=== PATIENT | male | born 1985 | race Caucasian/White ===

== ENCOUNTER 2021-10-09 19:16 | Inpatient (IN) | payer MEDICAID, SELFPAY ==
[2021-10-09] VITALS (20 sets, daily range): BP systolic 113–151; BP diastolic 70–111; PULSE 77–100; RESP 12–28; TEMP 36.7; O2SAT 96–99
--- NOTE | ~2021-10-09 | CT_ITS ---
EXAMINATION: CT brain wo con DATE: 10/09/2021 21:08 INDICATION: AMS . TECHNIQUE: Computed tomography (CT) of the head was performed without intravenous contrast. The mA wa s adjusted according to patient size. Iterative reconstruction technique was employed. The dose-lengt h product was 605.33 mGy-cm. COMPARISON: None FINDINGS: No acute intracranial hemorrhage or extra-axial fluid collection. No hydrocephalus, mass, or herniation. No acute ischemic infarct. Unremarkable dural venous sinus attenuation. No acute osseous abnormality. The aerated spaces are clear. IMPRESSION: No acute intracranial process. Reviewed, dictated and finalized at location K.
--- NOTE | 2021-10-09 19:54 | ECG_ITS ---
Measurements Intervals [place] Rate: 112 P: 10 ID: 177 QRS: 71 QRSD: 89 T: 52 QT: 328 QTc: 450 Interpretive Statements SINUS TACHYCARDIA LEFT VENTRICULAR HYPERTROPHY AND ST-T CHANGE Electronically Signed On 10-10-2021 10:51:29 CDT by Tan Colin M.D.
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
[2021-10-09 20:05] LABS: Basophils Absolute Auto 0.1 K/mm3 (0.0-0.1); Basophils Percent Auto 2.6 % (0.2-1.2); Eosinophils Absolute Auto 0.1 K/mm3 (0-0.3); Eosinophils Percent Auto 2.2 % (0-4.4); Hematocrit 46.4 % (42.0-52.0); Hemoglobin 15.6 g/dL (14.0-18.0); Immature Granulocyte Absolute 0.03 K/mm3 (0.00-0.031); Immature Granulocyte Percent A 0.6 % (0-0.5); Lymphocytes Absolute Auto 2.03 K/mm3 (0.9-3.2); Lymphocytes Percent Auto 40.8 % (18.3-44.2); Mean Corpuscular HGB Conc 33.6 g/dl (32-36); Mean Corpuscular Hemoglobin 32.3 pg (26-34); Mean Corpuscular Volume 96.1 fl (80-100); Mean Platelet Volume 8.8 fl (7.4-10.4); Monocytes Absolute Auto 0.6 K/mm3 (0.1-0.6); Neutrophils Absolute Auto 2.1 K/mm3 (1.3-6.7); Neutrophils Percent Auto 41.8 % (45.5-73.1); Platelet Count Result 144 k/mm3 (150-375); Red Blood Count 4.83 M/mm3 (4.6-6.20); Red Cell Distribution Width 16.1 % (11.5-14.5)
[2021-10-09 20:11] LABS: Fractional Inspired Oxygen 21 %; HCO3 ABG 26.5 mEq/l (22.0-26.0); Oxygen Content ABG 21.3 %vol (16.0-22.0); Oxygen Saturation ABG 98.6 % (95.0-100.0); Oxyhemoglobin 92.3 % THb (90.0-100.0); PCO2 ABG 37.3 mmHg (35.0-45.0); PO2 ABG 123.4 mmHg (80.0-100.0); PO2 FiO2 Ratio Arterial Blood 5.88 %; Total Hemoglobin 16.3 g/dL (12.0-18.0)
[2021-10-09 20:13] LABS: Device ROOM AIR; Modified Allen's Test Unable to perform; Site Drawn RIGHT RADIAL
[2021-10-09 20:22] LABS: Alanine Aminotransferase 35 U/L (6-50); Albumin Level 5.1 g/dL (3.5-5.1); Alkaline Phosphatase 100 U/L (38-126); Anion Gap 12 mmol/L (8-16); Aspartate Amino Transferase 68 U/L (17-59); Bilirubin,Total 0.3 mg/dL (0.2-1.3); Blood Urea Nitrogen 11 mg/dL (9-20); Calcium 8.5 mg/dL (8.4-10.2); Carbon Dioxide 28 mmol/L (22-30); Chloride 106 mmol/L (98-107); Estimated Glomerular Filt Rate > 60; Glucose 95 mg/dL (65-110); Potassium 4.2 mmol/L (3.4-5.0); Sodium 146 mmol/L (137-145)
[2021-10-09 20:43] LABS: Lactic Acid Reflex 1.9 mmol/L (0.7-2.0)
[2021-10-09 21:04] LABS: Acetaminophen < 10 ug/mL (10-30); Ammonia < 9 umol/L (9-30); Salicylate < 1.0 mg/dL (2-20)
[2021-10-09 21:06] LABS: Ethanol 515 mg/dL (<10)
[2021-10-09 21:09] LABS: Appearance Urine Clear (Clear); Bilirubin Urine Negative (Negative); Blood Urine Negative (Negative); Color Urine Yellow (Yellow); Glucose Urine UA Negative (Negative); Ketones Urine Negative (Negative); Leukocyte Esterase Ur Negative LEU/UL (Negative); Nitrate Urine Negative (Negative); Protein Urine 2+ mg/dL (Negative); Specific Grav Ur 1.025 (1.001-1.035)
[2021-10-09] MEDS: levETIRAcetam 1000MG/NACL100ML 1,000 MG/100 ML BAG 400 MG IVPB (21:12)
[2021-10-09 21:18] LABS: Bacteria Urine Trace /hpf; Mucus Urine Rare /lpf; RBC Urine 0-2 /hpf (0-2); WBC Urine 0-3 /hpf
[2021-10-09 21:18] LABS: Creatine Kinase 313 U/L (55-170)
[2021-10-09 21:19] LABS: Add Urine Microscopic? YES
[2021-10-09 21:23] LABS: Amphetamine Screen Urine Negative (Negative); Barbiturate Screen Urine Negative (Negative); Benzodiazepines Screen Urine Negative (Negative); Cannabinoid Screen Urine Negative (Negative); Cocaine Screen Urine Negative (Negative); Methadone Screen Urine Negative (Negative); Opiate Screen Urine Negative (Negative); Phencyclidine Screen Urine Negative (Negative)
[2021-10-09] MEDS: SODIUM CHLORIDE 0.9% IV 1,000 ML 999 ML IV CONT (21:40)
[2021-10-09] MEDS: THIAMINE HCL 200 MG/2 ML VIAL 100 MG IV PUSH (23:14)
[2021-10-10] VITALS (13 sets, daily range): BP systolic 115–156; BP diastolic 78–95; PULSE 52–117; RESP 15–20; TEMP 36.3–37.1; O2SAT 96–98; BMI 22.4
--- NOTE | 2021-10-10 00:02 | PC.NURSE ---
Elsa, mother of pt, phone number is [phone]
--- NOTE | 2021-10-10 02:03 | ADMGEN ---
This patient, Darian Sue, was admitted to [facility] Surg Room 316-01. Patient/family oriented to hospital policies and general routines including ID bracelet, bed and alarms, visiting hours, pain management, procedures, bathroom and other care routines, personal items, smoking policy, room service/diet, and visiting hours. Information on how to activate the Rapid Response Team has been discussed. Patient/Family are encouraged to report perceived risks to care and to ask questions if they do not understand what they are told or what they should do.
--- NOTE | 2021-10-10 09:43 | PM.IMHP ---
H&P: HPI History of Present Illness Date/Time: 10/10/21 09:43 Chief Complaint: Alcohol intoxication Narrative: 35-year-old male with past medical history significant for alcohol abuse presenting with alcohol intoxication. Mom is at bedside and helps give history. Apparently the patient came home so drunk mom did not want to let him back in the house. Patient denies chest pain or shortness of breath, no nausea vomiting or diarrhea. No fevers or chills. No recent travel or sick contacts. Patient admits to long history of alcohol abuse. He states he went to rehab in [place] last year. He then came back and moved in with his mom. He stops drinking from November until March of 2021. Since then, Mom states he has been drinking daily and spends most of his time blackout drunk. She has decided he could no longer live with her as she was hoping he could stay simply to get back on his feet after rehab. Patient states he does not want to go back to rehab. He is very upset that he cannot live with his mother. He states he is not sure if he wants to quit drinking. He just wants to go home and go back to bed. Patient states he feels very jittery and anxious. He admits to having alcohol withdrawal seizures in the past if he does not wake up early enough to start drinking again. Review of Systems Review of Systems: General: HEENT: Atraumatic, normocephalic, mucous membranes moist CV: Regular rate and rhythm, S1, S2, no murmurs rubs or gallops noted Lungs: Clear to auscultation bilaterally, no rales or crackles noted, no wheezes, good air entry Abdomen: Soft, nontender, nondistended Extremities: Normal to inspection, no edema noted Skin: No rashes noted, no lesions or wounds seen Psych: Euthymic, normal affect Neuro: Cranial nerves 2-12 grossly intact, strength 5/5 upper and lower extremities noted [facility] Social History Social History Smoking status: Never smoker Second hand tobacco smoke exposure: No Alcohol intake: current Drinks per week: 80 Substance use: former Substance use type: marijuana, crack/cocaine and hallucinogens Other substance usage details: experimented with cocaine and mushrooms, smoked weed daily for 5 years Last use: 2 months ago Spiritual care concerns: No Meds Home Medications and Allergies Home Medications Medication Instructions Recorded Confirmed Type fluoxetine 20 mg capsule (Prozac) 20 cap PO 1XD 10/10/21 10/10/21 History Allergies Allergy/AdvReac Type Severity Reaction Status Date / Time No Known Allergies Allergy Mild Verified 10/09/21 19:33 Vital Signs Vital Signs - 24 hr 10/09/21 19:30 10/09/21 19:40 10/09/21 20:55 Temperature 98.0 F Pulse Rate 100 84 93 Respiratory Rate 18 24 H 21 H Blood Pressure 151/111 H 137/84 Pulse Oximetry 97 97 98 Oxygen Delivery Room Air Room Air 10/09/21 21:00 10/09/21 21:01 10/09/21 21:15 Temperature Pulse Rate 86 90 84 Respiratory Rate 17 19 19 Blood Pressure 140/100 H Pulse Oximetry 97 98 96 Oxygen Delivery 10/09/21 21:30 10/09/21 21:34 10/09/21 21:45 Temperature Pulse Rate 85 79 83 Respiratory Rate 21 H 20 28 H Blood Pressure 134/96 H Pulse Oximetry 97 98 Oxygen Delivery 10/09/21 21:46 10/09/21 22:00 10/09/21 22:01 Temperature Pulse Rate 77 92 88 Respiratory Rate 19 13 20 Blood Pressure 113/79 132/93 H Pulse Oximetry Oxygen Delivery 10/09/21 22:16 10/09/21 22:31 10/09/21 22:51 Temperature Pulse Rate 83 Respiratory Rate 16 Blood Pressure 129/95 H 124/86 Pulse Oximetry 97 Oxygen Delivery 10/09/21 23:04 10/09/21 23:43 10/09/21 23:45 Temperature Pulse Rate 86 88 90 Respiratory Rate 12 18 17 Blood Pressure Pulse Oximetry 97 96 97 Oxygen Delivery 10/09/21 23:46 10/09/21 23:47 10/10/21 00:00 Temperature Pulse Rate 90 85 95 Respiratory Rate 17 16 19 Blood Pressur
[2021-10-11 05:43] VITALS: BP 141/97; PULSE 50; RESP 16; TEMP 36.9; O2SAT 99
[2021-10-11 10:13] LABS: Basophils Absolute Auto 0.1 K/mm3 (0.0-0.1); Basophils Percent Auto 1.2 % (0.2-1.2); Eosinophils Absolute Auto 0.1 K/mm3 (0-0.3); Eosinophils Percent Auto 1.7 % (0-4.4); Hematocrit 46.3 % (42.0-52.0); Hemoglobin 16.3 g/dL (14.0-18.0); Immature Granulocyte Absolute 0.03 K/mm3 (0.00-0.031); Immature Granulocyte Percent A 0.5 % (0-0.5); Immature Platelet Fraction Pct 3.9 % (0.9-11.2); Lymphocytes Absolute Auto 1.04 K/mm3 (0.9-3.2); Lymphocytes Percent Auto 17.8 % (18.3-44.2); Mean Corpuscular HGB Conc 35.2 g/dl (32-36); Mean Corpuscular Hemoglobin 33.5 pg (26-34); Mean Corpuscular Volume 95.1 fl (80-100); Mean Platelet Volume 9.6 fl (7.4-10.4); Monocytes Absolute Auto 0.5 K/mm3 (0.1-0.6); Monocytes Percent Auto 8.2 % (2.6-8.5); Neutrophils Absolute Auto 4.1 K/mm3 (1.3-6.7); Neutrophils Percent Auto 70.6 % (45.5-73.1); Platelet Count Result 140 k/mm3 (150-375); Red Blood Count 4.87 M/mm3 (4.6-6.20); Red Cell Distribution Width 15.5 % (11.5-14.5); White Blood Count 5.9 K/mm3 (4.5-10.0)
[2021-10-11 10:23] LABS: Alanine Aminotransferase 37 U/L (6-50); Alkaline Phosphatase 74 U/L (38-126); Anion Gap 8 mmol/L (8-16); Aspartate Amino Transferase 62 U/L (17-59); Bilirubin,Total 1.1 mg/dL (0.2-1.3); Blood Urea Nitrogen 10 mg/dL (9-20); Carbon Dioxide 29 mmol/L (22-30); Chloride 100 mmol/L (98-107); Estimated CRCL calculation 159 ml/min; Estimated Glomerular Filt Rate > 60; Glucose 128 mg/dL (65-110); Magnesium 1.9 mg/dL (1.6-2.3); Potassium 3.8 mmol/L (3.4-5.0); Sodium 137 mmol/L (137-145)
[2021-10-11 10:32] LABS: INR 0.9; Prothrombin Time 12.2 Seconds (11.1-14.7)
[2021-10-11] MEDS: FLUoxetine HCL 20 MG CAPSULE PO (10:46)
[2021-10-11] MEDS: THIAMINE HCL INJ 100 MG, FOLIC ACID INJ 1 MG, MULTIVITAMINS-12 INJ VIAL 1 5 ML, MULTIVI... 125 MG IV CONT (10:46)
--- NOTE | 2021-10-11 12:30 | PM.IMPN ---
Progress Note: A&P Assessment and Plan (1) Alcohol abuse: Code(s): F10.10 - Alcohol abuse, uncomplicated Status: Acute Assessment and Plan: Request care coordination give patient a list of rehab facilities in homeless shelters for discharge planning Patient has contact with [facility] for rehab (2) Alcohol withdrawal: Code(s): F10.239 - Alcohol dependence with withdrawal, unspecified Status: Acute Assessment and Plan: Monitor symptoms closely with regular CIWA scales, Librium ordered around the clock, wean as able PRN and LENNOX librium CIWA 12 at time of exam Time Spent With Patient Time with patient: Greater than 35 minutes Subjective Date/time seen: 10/11/21 12:30 Interval history: 10/11/21 1230 patient was lying in bed he seemed to state that he was okay. He did look to have a lot of tremors. He really does want to go home however he just seems unstable. CIWA score was 12 points. He denies any chest pain, shortness of breath, nausea, vomiting diarrhea, constipation, weakness or fatigue. did talk to the patient about psycho therapy and the need to realize that he has addiction. His mother was also present in the room. Talked to the patient about next steps to rehab. Patient is agreeable to rehab has already made contact [facility]. 10/10/21? 09:43 35-year-old male with past medical history significant for alcohol abuse presenting with alcohol intoxication.? Mom is at bedside and helps give history.? Apparently the patient came home so drunk mom did not want to let him back in the house.? Patient denies chest pain or shortness of breath, no nausea vomiting or diarrhea.? No fevers or chills.? No recent travel or sick contacts.? Patient admits to long history of alcohol abuse.? He states he went to rehab in [place] last year.? He then came back and moved in with his mom.? He stops drinking from November until March of 2021.? Since then, Mom states he has been drinking daily and spends most of his time blackout drunk.? She has decided he could no longer live with her as she was hoping he could stay simply to get back on his feet after rehab. Patient states he does not want to go back to rehab.? He is very upset that he cannot live with his mother.? He states he is not sure if he wants to quit drinking.? He just wants to go home and go back to bed. Patient states he feels very jittery and anxious.? He admits to having alcohol withdrawal seizures in the past if he does not wake up early enough to start drinking again. Review of Systems Review of Systems: All systems reviewed & are unremarkable except as noted in HPI and below Exam Const: General: cooperative, healthy appearing, well developed, alert, awake, anxious and ill appearing Nutritional Appearance: well nourished Orientation/consciousness: oriented to person, oriented to place, oriented to time and patient oriented x3 Limitations: no limitations HENMT: Head: normal to inspection Ears: hearing grossly normal bilaterally General nose exam: Normal external nose present Mouth: Yes Normal oral and palatal mucosa present, Yes lip normal and Yes tongue normal Teeth and gingiva: abnormal tooth and associated gingiva and poor dentition Eyes: General: appearance normal, both eyes and all related structures Neck: Neck: normal visual inspection, full ROM, trachea midline and supple Chest: Chest palpation & inspection: normal inspection of the chest Resp: Effort & Inspection: normal respiratory effort and able to speak in complete sentences Auscultation: clear to auscultation bilaterally Cardio: Jugular venous distension: no JVD Rate: regular rate Rhythm: regular rhythm Heart sounds: S1 normal heart sound present and S2 normal heart sound present Peripheral pulses: Peripheral pulses 2+ throughout GI: Inspection: normal to inspection GI Palp: Yes Soft to palpation and No Tenderness to palpation present (GI)
--- NOTE | 2021-10-11 12:46 | PCDIET ---
Nutrition consult received for alcohol abuse. Pt is on a regular diet, intake 100% all meals. MVI with thiamin, folic acid in place as would be recommended. BMI:22.4 - WNL.
[2021-10-11 14:00] VITALS: BP 152/94; PULSE 65; RESP 16; TEMP 36.8; O2SAT 98
[2021-10-11] MEDS: chlordiazePOXIDE (*CRX) 25 MG CAPSULE PO (15:45)
[2021-10-11 18:45] LABS: Glucose Point of Care 138 mg/dl (65-105)
[2021-10-11] MEDS: chlordiazePOXIDE (*CRX) 10 MG CAPSULE PO (21:25)
[2021-10-11 22:00] VITALS: BP 150/97; PULSE 76; RESP 18; TEMP 36.7; O2SAT 98
[2021-10-12 05:35] VITALS: BP 137/91; PULSE 69; RESP 18; TEMP 37; O2SAT 100
[2021-10-12] MEDS: chlordiazePOXIDE (*CRX) 10 MG CAPSULE PO (06:06)
[2021-10-12 06:42] LABS: Basophils Absolute Auto 0.1 K/mm3 (0.0-0.1); Eosinophils Absolute Auto 0.1 K/mm3 (0-0.3); Eosinophils Percent Auto 1.9 % (0-4.4); Hematocrit 44.9 % (42.0-52.0); Hemoglobin 14.9 g/dL (14.0-18.0); Immature Granulocyte Absolute 0.03 K/mm3 (0.00-0.031); Immature Granulocyte Percent A 0.5 % (0-0.5); Lymphocytes Absolute Auto 1.38 K/mm3 (0.9-3.2); Lymphocytes Percent Auto 23.8 % (18.3-44.2); Mean Corpuscular HGB Conc 33.2 g/dl (32-36); Mean Corpuscular Hemoglobin 32.8 pg (26-34); Mean Corpuscular Volume 98.9 fl (80-100); Mean Platelet Volume 9.5 fl (7.4-10.4); Monocytes Absolute Auto 0.5 K/mm3 (0.1-0.6); Monocytes Percent Auto 7.9 % (2.6-8.5); Neutrophils Absolute Auto 3.8 K/mm3 (1.3-6.7); Neutrophils Percent Auto 64.9 % (45.5-73.1); Platelet Count Result 128 k/mm3 (150-375); Red Blood Count 4.54 M/mm3 (4.6-6.20); Red Cell Distribution Width 15.4 % (11.5-14.5); White Blood Count 5.8 K/mm3 (4.5-10.0)
[2021-10-12 06:56] LABS: Alanine Aminotransferase 34 U/L (6-50); Albumin Level 4.5 g/dL (3.5-5.1); Alkaline Phosphatase 69 U/L (38-126); Anion Gap 5 mmol/L (8-16); Aspartate Amino Transferase 53 U/L (17-59); Bilirubin,Total 0.8 mg/dL (0.2-1.3); Blood Urea Nitrogen 9 mg/dL (9-20); Calcium 8.3 mg/dL (8.4-10.2); Carbon Dioxide 29 mmol/L (22-30); Chloride 101 mmol/L (98-107); Estimated CRCL calculation 159 ml/min; Estimated Glomerular Filt Rate > 60; Glucose 93 mg/dL (65-110); Potassium 4.2 mmol/L (3.4-5.0); Salicylate < 1.0 mg/dL (2-20); Sodium 135 mmol/L (137-145)
[2021-10-12 08:00] VITALS: PULSE 69; RESP 18; O2SAT 100
[2021-10-12] MEDS: THIAMINE HCL 100 MG TABLET PO (08:04)
[2021-10-12] MEDS: FLUoxetine HCL 20 MG CAPSULE PO (08:04)
[2021-10-12] MEDS: FOLIC ACID 1 MG TABLET PO (08:04)
[2021-10-12 08:19] LABS: Glucose Point of Care 115 mg/dl (65-105)
--- NOTE | 2021-10-12 09:22 | PC.NURSE ---
pt admitted 10/11/21 per computer, stating he is getting suppose to get discharged today and has rehab appointment at 1030am, called to inform provider Lito Marcelo NP, awaiting call back.
--- NOTE | 2021-10-12 09:35 | PM.DS ---
DS: Admitting Diagnosis Discharge Date 10/12/21929 Admitting Diagnosis Alcohol withdrawal DS: Discharge Diagnosis Discharge Diagnosis (1) Alcohol abuse: Code(s): F10.10 - Alcohol abuse, uncomplicated Status: Acute Assessment and Plan: Request care coordination give patient a list of rehab facilities in homeless shelters for discharge planning Patient has contact with [facility] for rehab (2) Alcohol withdrawal: Code(s): F10.239 - Alcohol dependence with withdrawal, unspecified Status: Acute Assessment and Plan: Monitor symptoms closely with regular CIWA scales, Librium ordered around the clock, wean as able PRN and LENNOX librium CIWA 12 at time of exam DS: Summary Hospital Course Hospital Course: Patient is a 35-year-old male with a past medical history for alcohol abuse presenting for alcohol intoxication. Patient was currently living with his mother however his mother stated that the patient has been continuously drunk over the last couple days to the point of him blacking out. It is also noted the patient has had seizures due to alcohol withdrawal due to not waking up enough time to get another drink. Today patient has an appointment with [facility] for rehab and follow-up. Upon arrival patient was initiated with a banana bag which were changed over to p.o. thiamine and folic acid. Patient was also on Librium for withdrawal symptoms. CIWA score did show to be a 12 yesterday. Today patient is up and ready to go as he has an appointment at 10:30 a.m. with [facility]. Education and counseling has been given to the patient about quitting and alcohol cessation. Education has also been given to the patient about taking Librium and alcohol together the side effects and what could do. Patient verbalized understanding. Patient's CIWA score today is the about 3-4. Patient seems to be very excited about going to his appointment today. Patient denies any chest pain, shortness of breath, nausea, vomiting, diarrhea, constipation, weakness or fatigue. Patient did have breakfast and was able to tolerate food without any nausea or vomiting. Patient still does have some tremors especially with his arms extended. Patient is stable for discharge for labs and vital signs. Status at Discharge Functional status at discharge: independent ambulation Overall status at discharge: patient is progressing back to baseline Time Spent with Patient Time attestation: Total time spent providing and/or coordinating discharge services: 42 minutes Time spent: Greater than 30 minutes Specific discharge activities: Diagnostic testing, chart review, developing a treatment plan, education, care coordination documentation, physical exam, result review Exam Const: General: cooperative, healthy appearing, well developed, alert and awake Nutritional Appearance: well nourished Orientation/consciousness: oriented to person, oriented to place, oriented to time and patient oriented x3 Limitations: no limitations HENMT: Head: normal to inspection Ears: hearing grossly normal bilaterally General nose exam: Normal external nose present Mouth: Yes Normal oral and palatal mucosa present, Yes lip normal and Yes tongue normal Teeth and gingiva: abnormal tooth and associated gingiva and poor dentition Eyes: General: appearance normal, both eyes and all related structures Neck: Neck: normal visual inspection, full ROM, trachea midline and supple Chest: Chest palpation & inspection: normal inspection of the chest Resp: Effort & Inspection: normal respiratory effort and able to speak in complete sentences Auscultation: clear to auscultation bilaterally Cardio: Jugular venous distension: no JVD Rate: regular rate Rhythm: regular rhythm Heart sounds: S1 normal heart sound present and S2 normal heart sound present Peripheral pulses: Peripheral pulses 2+ throughout GI: Inspection: normal to inspection Auscul
--- NOTE | 2021-10-12 09:49 | PC.NURSE ---
called Elsa, able to miner pick pt, on her way.
[2021-10-14 16:21] LABS: Levetiracetam Keppra 5.3
== END 2021-10-12 10:00 | disposition home or self-care (01) | DRG 775 ==
LOC: ANHED 23:06 → ANH3MEDSUR 23:50
PROVIDERS: Student in an Organized Health Care Education/Training Program; Admitting Provider Internal Medicine; Emergency Provider Emergency Medicine; Visit Provider Nurse Practitioner
DX: F10.229 Alcohol dependence with intoxication, unspecified (principal); F10.239 Alcohol dependence with withdrawal, unspecified
CPT/HCPCS: 36415; 36600; 70450; 80053; 80177; 80307; 81001; 82140; 82550; 82805; 82948; 83605; 83735; 84100; 84443; 85025; 85055; 85610; 93005; 96365; 96374; 96375; 99285; A9270; G0378; G0379; J1953; J3411; J3475; J7030

== ENCOUNTER 2023-03-06 17:38 | Emergency (ER) | payer BC, SELFPAY ==
[2023-03-06 17:48] VITALS: BP 147/94; PULSE 103; RESP 14; TEMP 36.6; O2SAT 98
--- NOTE | 2023-03-06 18:00 | PC.NURSE ---
BED ALARM GOING OFF. PT FOUND STANDING BESIDE HIS BED AND IV WAS PULLED OUT. BLOOD CLEANED OFF AND PT ASSISTED BACK INTO BED. HE WAS MADE AWARE HE IS NOT TO ATTEMPT TO GET OUT OF BED AGAIN. CHRISTI FOSTER MADE AWARE.
--- NOTE | 2023-03-06 18:14 | PC.NURSE ---
Sitter placed with patient for patient safety.
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
[2023-03-06 18:45] LABS: Basophils Absolute Auto 0.1 K/mm3 (0.0-0.1); Basophils Percent Auto 1.6 % (0.2-1.2); Eosinophils Absolute Auto 0.1 K/mm3 (0-0.3); Eosinophils Percent Auto 1.2 % (0-4.4); Hematocrit 47.5 % (42.0-52.0); Hemoglobin 16.1 g/dL (14.0-18.0); Immature Granulocyte Absolute 0.02 K/mm3 (0.00-0.031); Immature Granulocyte Percent A 0.4 % (0-0.5); Lymphocytes Absolute Auto 1.68 K/mm3 (0.9-3.2); Lymphocytes Percent Auto 34.1 % (18.3-44.2); Mean Corpuscular HGB Conc 33.9 g/dl (32-36); Mean Corpuscular Volume 97.3 fl (80-100); Monocytes Absolute Auto 0.3 K/mm3 (0.1-0.6); Monocytes Percent Auto 6.1 % (2.6-8.5); Neutrophils Absolute Auto 2.8 K/mm3 (1.3-6.7); Neutrophils Percent Auto 56.6 % (45.5-73.1); Platelet Count Result 192 k/mm3 (150-375); Red Blood Count 4.88 M/mm3 (4.6-6.20); Red Cell Distribution Width 14.3 % (11.5-14.5); White Blood Count 4.9 K/mm3 (4.5-10.0)
[2023-03-06 18:52] LABS: Alanine Aminotransferase 19 U/L (6-50); Albumin Level 4.6 g/dL (3.5-5.1); Alkaline Phosphatase 83 U/L (38-126); Anion Gap 13 mmol/L (8-16); Aspartate Amino Transferase 47 U/L (17-59); Bilirubin,Total 0.6 mg/dL (0.2-1.3); Blood Urea Nitrogen 8 mg/dL (9-20); Calcium 8.5 mg/dL (8.4-10.2); Carbon Dioxide 29 mmol/L (22-30); Chloride 105 mmol/L (98-107); Estimated CRCL calculation 157 ml/min; Estimated Glomerular Filt Rate > 60; Glucose 97 mg/dL (65-110); Potassium 4.2 mmol/L (3.4-5.0); Sodium 147 mmol/L (137-145)
[2023-03-06 18:55] LABS: INR 0.9; Prothrombin Time 12.3 Seconds (11.1-14.7)
[2023-03-06 18:56] LABS: Partial Thromboplastin Time 25.8 SECONDS (22.3-36.8)
[2023-03-06 19:04] LABS: Ethanol 478 mg/dL (<10)
--- NOTE | 2023-03-06 19:13 | PC.NURSE ---
Patient refusing to keep pulse ox or ECG leads on. Patient continues to pull everything off.
[2023-03-06] MEDS: LACTATED RINGERS 1,000 ML 999 ML IV CONT (19:24)
--- NOTE | 2023-03-06 19:51 | PC.NURSE ---
Patient refusing to lay down in the bed. security at bedside due to patient not cooperating.
[2023-03-06 20:57] VITALS: BP 154/94; PULSE 94; RESP 20; O2SAT 95
== END 2023-03-06 21:00 | disposition home or self-care (01) ==
PROVIDERS: Emergency Provider Physician Assistant
DX: F10.129 Alcohol abuse with intoxication, unspecified (principal); E86.0 Dehydration; Y90.8 Blood alcohol level of 240 mg/100 ml or more
CPT/HCPCS: 36415; 80053; 80307; 85025; 85610; 85730; 96360; 99283; J7120

== ENCOUNTER 2023-04-04 17:22 | Emergency (ER) | payer BC, SELFPAY ==
[2023-04-04 17:20] VITALS: BP 145/78; PULSE 109; RESP 16; TEMP 36.2; O2SAT 98
--- NOTE | 2023-04-04 17:32 | ECG_ITS ---
Measurements Intervals [place] Rate: 107 P: 55 GA: 170 QRS: 55 QRSD: 100 T: 76 QT: 331 QTc: 443 Interpretive Statements SINUS TACHYCARDIA LEFT VENTRICULAR HYPERTROPHY WITH SECONDARY REPOLARIZATION CHANGES ABNORMAL RHYTHM ECG COMPARED TO ECG 10/09/2021 19:58:43 NO SIGNIFICANT CHANGE Electronically Signed On 04-04-2023 18:13:32 DATA TRANSCRIBER by Cecilio Oviedo M.D.
--- NOTE | 2023-04-04 17:44 | ED.GENADULT ---
HPI - General Adult General Chief complaint: Alcohol <Bam Sepulveda PA-C - Last Filed: 04/05/23 03:17> Stated complaint: etoh <Bam Sepulveda PA-C - Last Filed: 04/05/23 03:17> Source: patient <Bam Sepulveda PA-C - Last Filed: 04/05/23 03:17> Mode of arrival: ambulatory <Bam Sepulveda PA-C - Last Filed: 04/05/23 03:17> Limitations: no limitations <Bam Sepulveda PA-C - Last Filed: 04/05/23 03:17> History of Present Illness HPI narrative: This is a 37-year-old male who presents to the ED via EMS for reported alcoholic intoxication. The neighbors called EMS after they found him slumped on his balcony with several open containers of vodka. Per EMS patient was not responding for them and has not given any further history. When I try to obtain history patient is not responding to me. <Bam Sepulveda PA-C - Last Filed: 04/05/23 03:17> Related Data Home medications: Home Medications Medication Instructions Recorded Confirmed fluoxetine 20 mg capsule (Prozac) 20 cap PO 1XD 10/10/21 10/10/21 <Bam Sepulveda PA-C - Last Filed: 04/05/23 03:17> Allergies/adverse reactions: Allergies Allergy/AdvReac Type Severity Reaction Status Date / Time No Known Allergies Allergy Mild Verified 03/06/23 17:53 <Bam Sepulveda PA-C - Last Filed: 04/05/23 03:17> Review of Systems Review of Systems: All systems as dictated in HPI <Bam Sepulveda PA-C - Last Filed: 04/05/23 03:17> [facility] Past Medical History Medical History: Medical History Alcohol abuse <Bam Sepulveda PA-C - Last Filed: 04/05/23 03:17> Social History Social History: Social History Smoking status: Never smoker Second hand tobacco smoke exposure: No Alcohol intake: current Drinks per week: 80 Substance use: former Substance use type: marijuana, crack/cocaine and hallucinogens Other substance usage details: experimented with cocaine and mushrooms, smoked weed daily for 5 years Last use: 2 months ago Spiritual care concerns: No <Bam Sepulveda PA-C - Last Filed: 04/05/23 03:17> Exam Narrative: GENERAL: Dishevelled, well nourished. No acute distress. He is not participating with exam. Smells of alcohol. HEAD: Normocephalic, atraumatic. EYES: PERRLA and EOMI. Tracking my movements. ENT: Nares clear, no rhinorrhea or epistaxis. Mucous membranes moist. Oropharynx without tonsillar hypertrophy exudate or other lesions. NECK: Supple. No adenopathy or masses. CHEST: No respiratory distress. Clear to auscultation. No wheezes rales or rhonchi HEART: Regular rate and rhythm. No murmur heard. Normal peripheral pulses. ABDOMEN: Soft, nontender, nondistended, normal active bowel sounds. MSK: Normal range of motion. No edema. SKIN: Warm, dry, no rash. NEURO: Not responding to questions, not participating with full exam. Makes eye contact when I shout his name. Does not follow commands. PSYCH: Normal mood and affect. <Bam Sepulveda PA-C - Last Filed: 04/05/23 03:17> Course Course Emergency Course: Evaluation time 1:33 a.m.: Patient remains stable. He is now participating fully with exam and conversational. He appears to be clinically sobering up however his ethanol level is still markedly elevated at 334. CK a repeat has come down to 6093 from over 7000. <Bam Sepulveda PA-C - Last Filed: 04/05/23 03:17> MANAGER WEALTH MANAGEMENT/PA Physician Supervision For this patient encounter, I reviewed the MANAGER WEALTH MANAGEMENT or PA documentation, treatment plan, and medical decision making; and I had [id number] time with this patient. <Konrad Cruz MD - Last Filed: 04/05/23 03:18> Vital Signs Vital signs: Vital Signs Temperature 97.2 F L 04/04/23 17:20 Pulse Rate 109 H 04/04/23 17:20 Respiratory Rate 16 04/04/23 17:20 Blood Pressure 145/78 H 04/04/23 17:20 Pulse Oximetry 98 04/04/23 17:20 Temperature 97.2 F L 03/16
[2023-04-04] MEDS: SODIUM CHLORIDE 0.9% IV 1,000 ML 999 ML IV CONT ×3 (18:02→23:44)
[2023-04-04 18:13] LABS: Basophils Absolute Auto 0.1 K/mm3 (0.0-0.1); Basophils Percent Auto 0.9 % (0.2-1.2); Eosinophils Percent Auto 0.1 % (0-4.4); Hematocrit 47.4 % (42.0-52.0); Immature Granulocyte Absolute 0.03 K/mm3 (0.00-0.031); Immature Granulocyte Percent A 0.3 % (0-0.5); Lymphocytes Absolute Auto 2.24 K/mm3 (0.9-3.2); Lymphocytes Percent Auto 19.6 % (18.3-44.2); Mean Corpuscular HGB Conc 33.8 g/dl (32-36); Mean Corpuscular Hemoglobin 32.2 pg (26-34); Mean Corpuscular Volume 95.4 fl (80-100); Mean Platelet Volume 8.6 fl (7.4-10.4); Monocytes Absolute Auto 0.9 K/mm3 (0.1-0.6); Monocytes Percent Auto 7.9 % (2.6-8.5); Neutrophils Absolute Auto 8.1 K/mm3 (1.3-6.7); Neutrophils Percent Auto 71.2 % (45.5-73.1); Platelet Count Result 347 k/mm3 (150-375); Red Blood Count 4.97 M/mm3 (4.6-6.20); Red Cell Distribution Width 13.8 % (11.5-14.5); White Blood Count 11.4 K/mm3 (4.5-10.0)
[2023-04-04 18:25] LABS: Alanine Aminotransferase 46 U/L (6-50); Albumin Level 4.6 g/dL (3.5-5.1); Alkaline Phosphatase 106 U/L (38-126); Anion Gap 13 mmol/L (8-16); Aspartate Amino Transferase 227 U/L (17-59); Bilirubin,Total 0.4 mg/dL (0.2-1.3); Blood Urea Nitrogen 10 mg/dL (9-20); Calcium 8.4 mg/dL (8.4-10.2); Carbon Dioxide 29 mmol/L (22-30); Chloride 102 mmol/L (98-107); Estimated CRCL calculation 148 ml/min; Estimated Glomerular Filt Rate > 60; Glucose 113 mg/dL (65-110); Potassium 4.2 mmol/L (3.4-5.0); Sodium 144 mmol/L (137-145)
[2023-04-04 18:31] VITALS: BP 141/80; PULSE 115; RESP 18; O2SAT 98; O2SAT 99
[2023-04-04 18:59] LABS: Amphetamine Screen Urine Negative (Negative); Barbiturate Screen Urine Negative (Negative); Benzodiazepines Screen Urine Negative (Negative); Cannabinoid Screen Urine Negative (Negative); Cocaine Screen Urine Negative (Negative); Methadone Screen Urine Negative (Negative); Opiate Screen Urine Negative (Negative); Phencyclidine Screen Urine Negative (Negative)
[2023-04-04 19:01] VITALS: BP 117/73; RESP 18; O2SAT 99
[2023-04-04 19:07] LABS: Creatine Kinase 7183 U/L (55-170)
[2023-04-04 19:17] LABS: Ethanol 512 mg/dL (<10)
[2023-04-04 19:25] LABS: Appearance Urine Clear (Clear); Bacteria Urine None Seen /hpf; Bilirubin Urine Negative (Negative); Blood Urine 1+ (Negative); Color Urine Yellow (Yellow); Glucose Urine UA Negative (Negative); Ketones Urine Negative (Negative); Leukocyte Esterase Ur Negative LEU/UL (Negative); Need Manual Microscopic Reviewed; Nitrate Urine Negative (Negative); Non Pathogenic Casts 0-2; Protein Urine Negative (Negative); RBC Urine 0-2 /hpf (0-2); Specific Grav Ur 1.004 (1.001-1.035); Squamous Epithelial Cell Urine None seen /hpf (Few); Urobilinogen Urine 0.2 mg/dL (<2.0); WBC Urine 0-5 /hpf; pH Urine 5.5 (5.0-9.0)
[2023-04-04 19:26] LABS: Add Urine Microscopic? YES
[2023-04-04 19:30] LABS: Phosphorus 2.4 mg/dL (2.5-4.5)
[2023-04-04 19:43] LABS: Partial Thromboplastin Time 25.5 SECONDS (22.3-36.8)
--- NOTE | 2023-04-04 20:12 | PC.NURSE ---
Patient pulled out his IV. When asked why the patient stated It was getting cold .
--- NOTE | 2023-04-04 20:20 | PC.NURSE ---
Nursing staff entered the room to start another IV and continue fluids. Patient asked why he was getting another IV and nursing staff told him because his fluids were not finished and there was another medication that needed to be given. Patient stated he would like to deny an IV. EDP Bam Garibay notified.
[2023-04-04 21:30] LABS: Fractional Inspired Oxygen 21 %; HCO3 VBG 25.9 mEq/l (24.0-30.0); PCO2 VBG 36.6 mmHg (42.0-48.0); PO2 VBG 74.8 mmHg (35.0-45.0)
[2023-04-04 21:32] LABS: pH VBG 7.467 (7.300-7.400)
[2023-04-04] MEDS: THIAMINE 500 MG/NS 100 ML 500 MG/100 ML BAG 200 MG IVPB (21:32)
[2023-04-04 21:33] VITALS: BP 148/85; PULSE 109; RESP 16; O2SAT 97
[2023-04-04 21:44] VITALS: BP 148/85; PULSE 110; RESP 20; O2SAT 99
[2023-04-04 23:48] VITALS: BP 142/78; PULSE 96; RESP 15; O2SAT 97
[2023-04-05 00:25] LABS: Creatine Kinase 6093 U/L (55-170)
[2023-04-05 00:56] LABS: Ethanol 334 mg/dL (<10)
[2023-04-05] MEDS: SODIUM CHLORIDE 0.9% IV 1,000 ML 500 ML IV CONT (01:42)
[2023-04-05 02:44] VITALS: BP 143/81; PULSE 89; RESP 15; O2SAT 98
[2023-04-05 03:15] VITALS: O2SAT 96
[2023-04-05 03:30] VITALS: O2SAT 98
[2023-04-05 06:56] VITALS: BP 145/89; PULSE 111; RESP 15; O2SAT 97
[2023-04-05 07:08] LABS: Ethanol 131 mg/dL (<10)
[2023-04-05 07:12] LABS: Anion Gap 10 mmol/L (8-16); Blood Urea Nitrogen 9 mg/dL (9-20); Calcium 7.4 mg/dL (8.4-10.2); Carbon Dioxide 24 mmol/L (22-30); Chloride 104 mmol/L (98-107); Estimated CRCL calculation 148 ml/min; Estimated Glomerular Filt Rate > 60; Glucose 220 mg/dL (65-110); Potassium 3.4 mmol/L (3.4-5.0); Sodium 138 mmol/L (137-145)
[2023-04-05 07:39] LABS: Creatine Kinase 5056 U/L (55-170)
[2023-04-05 08:08] VITALS: BP 149/92; PULSE 104; RESP 18; O2SAT 98
== END 2023-04-05 08:09 | disposition home or self-care (01) ==
PROVIDERS: Emergency Medicine; Physician Assistant; Emergency Provider Student in an Organized Health Care Education/Training Program
DX: F10.129 Alcohol abuse with intoxication, unspecified (principal); Y90.8 Blood alcohol level of 240 mg/100 ml or more; R00.0 Tachycardia, unspecified; I51.7 Cardiomegaly
CPT/HCPCS: 36415; 80048; 80053; 80307; 81001; 82550; 82803; 83735; 84100; 85025; 85730; 93005; 96360; 96361; 96365; 99284; J3411; J7030

== ENCOUNTER 2023-06-30 11:50 | Emergency (ER) | payer BC, SELFPAY ==
--- NOTE | ~2023-06-30 | CT_ITS ---
EXAMINATION: CT brain wo con DATE: 06/30/2023 13:00 INDICATION: Altered mental status TECHNIQUE: Computed tomography (CT) of the head was performed without intravenous contrast. Sagittal and coronal reconstructions were performed. Automated exposure control and iterative reconstruction t echnique were employed. The dose-length product was 605.33 mGy-cm. COMPARISON: head CT dated 10/09/21 FINDINGS: Chronic scarring at the scalp at the vertex. No fracture. No acute intracranial hemorrhage, acute inf arction or abnormal extra axial fluid collection. Ventricles are normal and symmetric with normal johnie iant cavum septum pellucidum et vergae. No mass/mass effect. The orbits, paranasal sinuses and mastoi d air cells are normal. IMPRESSION: 1. Normal brain. No acute intracranial process. Reviewed, dictated and finalized at location A.
[2023-06-30 11:52] VITALS: BP 128/81; PULSE 84; RESP 16; TEMP 36.5; O2SAT 98
--- NOTE | 2023-06-30 12:02 | PC.NURSE ---
Pt taken to room via wheelchair, pt denied bingo cashier to check belongings RN locked up pt belongings in cabinet. Pt denied to be placed in a gown or on surveillance monitor. rehabilitation center manager made aware.
--- NOTE | 2023-06-30 12:05 | ED.ALCOHOL ---
HPI - Alcohol General Chief Complaint: Alcohol Stated Complaint: ETOH Time Seen by Provider: 06/30/23 12:00 History of Present Illness HPI narrative: Patient is a 37-year-old male with history of alcohol abuse here today with alcohol intoxication. He states that he remembers drinking vodka last night, is unsure of how he ended up in someone's yd. EMS brought him into the emergency department after he was found unresponsive lying in a stranger's yard. He was reportedly given one dose of narcan with no response, became more alert en route and told EMS he had been drinking. He does not know if he hit his head. He denies any pain. Alert, oriented to self and time. Related Data Home Medications Medication Instructions Recorded Confirmed fluoxetine 20 mg capsule (Prozac) 20 cap PO 1XD 10/10/21 10/10/21 Allergies Allergy/AdvReac Type Severity Reaction Status Date / Time No Known Allergies Allergy Mild Verified 03/06/23 17:53 [facility] Past Medical History Medical History Alcohol abuse Social History Social History Smoking status: Never smoker Second hand tobacco smoke exposure: No Alcohol intake: current Drinks per week: 80 Substance use: former Substance use type: marijuana, crack/cocaine and hallucinogens Other substance usage details: experimented with cocaine and mushrooms, smoked weed daily for 5 years Last use: 2 months ago Spiritual care concerns: No Course Course Emergency Course: Chart review performed, patient here via EMS after being found unresponsive on neighbors lawn this morning. Received 1 dose of Narcan on scene, no response. Endorsed drinking to staff. Triage vitals normal. Multiple prior visits in our system for ETOH. Patient seen evaluated, awake, alert, oriented. No evidence of head trauma. Appears mildly intoxicated but fully responsive. Will do CT brain given patient was found unresponsive lying on the ground to ensure no intracranial pathology from potential trauma. Discussed with him that should he be able to find a sober ride he could be discharged home after workup. CT brain negative. Patient notes he has a sober way home. Clinically stable, alert, oriented, walking with steady gait at this time. The results of pertinent diagnostic studies and exam findings were discussed. The patient?s provisional diagnosis and plan of care were discussed with the patient and present family. The patient and/or present family expressed understanding of the diagnosis and plan. The nurse was instructed to provide written instructions and appropriate follow-up information. The patient understands their need and responsibility to obtain additional follow-up as instructed. The risks of medications administered and prescribed were discussed with the patient and family present. Vital Signs Vital signs: Vital Signs Temperature 97.7 F 06/30/23 11:52 Pulse Rate 84 06/30/23 11:52 Respiratory Rate 16 06/30/23 11:52 Blood Pressure 128/81 06/30/23 11:52 Pulse Oximetry 98 06/30/23 11:52 Oxygen Delivery Room Air 06/30/23 11:52 Temperature 97.7 F 06/30/23 11:52 Pulse Rate 84 06/30/23 11:52 Respiratory Rate 16 06/30/23 11:52 Blood Pressure 128/81 06/30/23 11:52 Pulse Oximetry 98 06/30/23 11:52 Oxygen Delivery Room Air 06/30/23 11:52 MDM - Alcohol Imaging Data Radiologist's impression: ITS Impressions Head CT 06/30/23 13:06 IMPRESSION: 1. Normal brain. No acute intracranial process. Discharge Plan Discharge Clinical Impression: Alcohol intoxication Qualifiers: Complication of substance-induced condition: uncomplicated Qualified Code(s): F10.920 - Alcohol use, unspecified with intoxication, uncomplicated Patient Disposition: Home, Self-Care Condition: Stable Instructions: Antibiotic Form, Alcohol Intoxication (ED) Additional Instructions: Decrease your alcohol intake
[2023-06-30 14:10] VITALS: BP 113/76; PULSE 70; RESP 18; O2SAT 99
== END 2023-06-30 14:29 | disposition home or self-care (01) ==
PROVIDERS: Emergency Provider Student in an Organized Health Care Education/Training Program
DX: F10.129 Alcohol abuse with intoxication, unspecified (principal); Y90.9 Presence of alcohol in blood, level not specified
CPT/HCPCS: 70450; 99284

== ENCOUNTER 2023-07-18 18:54 | Observation (INO) | payer BC, SELFPAY ==
--- NOTE | ~2023-07-18 | XR_ITS ---
EXAMINATION: XR chest 2V DATE: 07/18/2023 21:03 INDICATION: Chest pain and gastrointestinal bleed TECHNIQUE: frontal and lateral views of the chest were obtained. COMPARISON: None FINDINGS: The lungs are clear with no focal airspace opacities, pulmonary edema, pleural effusion or pneumothor ax. The cardiomediastinal silhouette is normal. Mild to moderate thoracic spondylosis. IMPRESSION: 1. No acute cardiopulmonary disease. Reviewed, dictated and finalized at location A.
--- NOTE | ~2023-07-18 | CT_ITS ---
EXAMINATION: CT abdomen pelvis w con DATE: 07/18/2023 21:47 INDICATION: Hematemesis TECHNIQUE: Computed tomography (CT) of the abdomen and pelvis was performed with 100 mL Omnipaque-350 intravenous contrast. Automated exposure control and iterative reconstruction technique were employe d. The dose-length product was 308.99 mGy-cm. COMPARISON: None FINDINGS: Lung bases are clear. Heart size is normal. No pericardial or pleural effusion. There is respiratory motion at the lung bases which obscures the gastroesophageal junction. There is prominent circumferen tial edematous wall thickening in the distal esophagus which could be seen with esophagitis. There is some stranding and small amount of paraesophageal fluid near the thoracic outlet. Evaluation the sto mach is limited by motion artifact. Liver, gallbladder, spleen, pancreas, bilateral adrenal glands an d kidneys are normal. Bladder is normal. Mild prostatomegaly. No bowel obstruction. Normal appendix. No free intraperitoneal gas or fluid. No pathologically enlarged abdominal or pelvic lymphadenopathy. L5 spondylolysis with a lateral pars intra-articular is defects and 6 mm anterolisthesis L5 on S1. M ild to moderate lower lumbar spondylosis. IMPRESSION: 1. Prominent circumferential edematous-appearing wall thickening at the distal esophagus suggestive o f esophagitis. 2. No acute intra-abdominal/pelvic process. Evaluation of a portion of the stomach and portions of th e bowels is limited by motion artifact level of the epigastric region and lower abdomen. Reviewed, dictated and finalized at location A. IMPRESSION: 1. Prominent circumferential edematous-appearing wall thickening at the distal esophagus suggestive of esophagitis. 2. No acute intra-abdominal/pelvic process. Evaluation of a portion of the stom ach and portions of the bowels is limited by motion artifact level of the epiga stric region and lower abdomen.
[2023-07-18 19:02] VITALS: BP 134/93; PULSE 122; RESP 20; TEMP 37.2; O2SAT 97
--- NOTE | 2023-07-18 19:45 | PC.NURSE ---
patient refusing to change into gown and be placed on monitor at this time.
--- NOTE | 2023-07-18 20:14 | ED.ALCOHOL ---
HPI - Alcohol General Chief Complaint: Alcohol Stated Complaint: INTOXICATED, N/V Time Seen by Provider: 07/18/23 19:47 Source: patient and family (sister, later patient's parents) Limitations: clinical condition and intoxication History of Present Illness HPI narrative: Patient presents with report of vomiting blood. Unclear of the timing (last night versus this morning), but there was reportedly an episode of large volume black coffee ground emesis followed by an episode later of bright red hematemesis. Patient denies any pain but sister reports he had told her he was having abdominal pain earlier. She has a photo of 3 empty pints of liquor patient had near him. He states he drinks occasionally but family reports regularly. Patient's last drink unclear. He does not know if he feels like he is intoxicated or withdrawing. He had denied any history of withdrawal / withdrawal seizures previously but tells me he has. He endorses using marijuana and cocaine years ago but denies recently; sister states marijuana use currently but does not know about other current drug use. He endorses feeling nauseated. Also having some chest discomfort. Related Data Home Medications Medication Instructions Recorded Confirmed No Home Medications 07/19/23 07/19/23 Allergies Allergy/AdvReac Type Severity Reaction Status Date / Time No Known Allergies Allergy Mild Verified 07/19/23 01:09 [facility] Past Medical History Medical History Alcohol abuse Family History Family History (Updated 07/19/23 @ 01:54 by Mariel Gonzalez RN) Father Malignant neoplasm of prostate Social History Social History Smoking packs per day: 0.5 Smoking cigarettes per day: 10.0 Years smoked: 19 Smoking pack-years: 9.50 Smoking status: Current every day smoker Tobacco type: cigarettes Second hand tobacco smoke exposure: No Alcohol intake: current Drinks per week: 80 Substance use: current Substance use type: marijuana Other substance usage details: former use of cocaine, mushrooms, delisa Last use: 2 months ago Do You Feel Safe in your Home?: Yes Lack of Transportation: No Lack of Food: Never True Current Housing: I Have Housing Concerned About Future Housing: No Difficulty Paying Gas/Electric Bills: No Difficulty Paying for Meds: No Currently Unemployed: YES Education: Decline to Answer Difficulty w/ Childcare or Family Care: No Spiritual care concerns: No Exam Narrative: GENERAL: Ill-appearing, well-nourished HEAD: Normocephalic, atraumatic. EYES: Non injected, non icteric ENT: Nares clear, no rhinorrhea or epistaxis. No blood in anterior oropharynx NECK: Supple. CHEST: Speaking in full sentences. No respiratory distress. HEART: Tachycardic rate and rhythm. . ABDOMEN: Soft, nondistended. EXTREMITIES: Normal range of motion. No edema. SKIN: Warm, dry, no rash. NEURO: No focal deficits. Alert and oriented to self and location but not particular health history or sequence of events. Tremulous when speaks but without tongue fasciculations. PSYCH: Normal mood and affect. Course Vital Signs Vital signs: Vital Signs Temperature 98.9 F 07/18/23 19:02 Pulse Rate 122 H 07/18/23 19:02 Respiratory Rate 20 07/18/23 19:02 Blood Pressure 134/93 H 07/18/23 19:02 Pulse Oximetry 97 07/18/23 19:02 Oxygen Delivery Room Air 07/18/23 19:02 Temperature 98.3 F 07/19/23 07:37 Pulse Rate 77 07/19/23 10:00 Respiratory Rate 22 H 07/19/23 07:37 Blood Pressure 137/72 07/19/23 07:37 Pulse Oximetry 97 07/19/23 07:37 Oxygen Delivery Room Air 07/19/23 01:16 MDM - Alcohol MDM Narrative Medical decision making narrative: Patient presents with report of 2 episodes hematemesis, one coffee ground and one bright red though the timing unclear. Patient regularly drinks alcohol. Last drink is unclear; patient appears cli
[2023-07-18] MEDS: PANTOPRAZOLE SODIUM IV 40 MG VIAL 80 MG IV PUSH (21:18)
[2023-07-18] MEDS: ONDANSETRON INJ 4 MG/2 ML VIAL IV PUSH (21:18)
[2023-07-18] MEDS: SODIUM CHLORIDE 0.9% IV 1,000 ML 999 ML IV CONT (21:19)
[2023-07-18 21:22] LABS: Basophils Absolute Auto 0.1 K/mm3 (0.0-0.1); Basophils Percent Auto 0.8 % (0.2-1.2); Eosinophils Percent Auto 0.2 % (0-4.4); Hematocrit 42.7 % (42.0-52.0); Immature Granulocyte Absolute 0.01 K/mm3 (0.00-0.031); Immature Granulocyte Percent A 0.2 % (0-0.5); Lymphocytes Absolute Auto 2.03 K/mm3 (0.9-3.2); Mean Corpuscular HGB Conc 35.1 g/dl (32-36); Mean Corpuscular Hemoglobin 32.7 pg (26-34); Mean Platelet Volume 9.1 fl (7.4-10.4); Monocytes Absolute Auto 0.6 K/mm3 (0.1-0.6); Monocytes Percent Auto 9.1 % (2.6-8.5); Neutrophils Absolute Auto 3.5 K/mm3 (1.3-6.7); Neutrophils Percent Auto 56.7 % (45.5-73.1); Platelet Count Result 108 k/mm3 (150-375); Red Blood Count 4.59 M/mm3 (4.6-6.20); Red Cell Distribution Width 14.6 % (11.5-14.5); White Blood Count 6.2 K/mm3 (4.5-10.0)
[2023-07-18 21:31] LABS: INR 0.9; Prothrombin Time 11.9 Seconds (11.1-14.7)
[2023-07-18 21:32] LABS: Alanine Aminotransferase 40 U/L (6-50); Albumin Level 4.5 g/dL (3.5-5.1); Alkaline Phosphatase 80 U/L (38-126); Anion Gap 11 mmol/L (4-12); Aspartate Amino Transferase 101 U/L (17-59); Bilirubin,Total 0.6 mg/dL (0.2-1.3); Blood Urea Nitrogen 10 mg/dL (9-20); Calcium 8.4 mg/dL (8.4-10.2); Carbon Dioxide 31 mmol/L (22-30); Chloride 100 mmol/L (98-107); Estimated CRCL calculation 179 ml/min; Estimated Glomerular Filt Rate > 60; Glucose 111 mg/dL (65-110); Magnesium 1.9 mg/dL (1.6-2.3); Partial Thromboplastin Time 24.1 Seconds (22.3-36.8); Potassium 3.8 mmol/L (3.4-5.0); Sodium 142 mmol/L (137-145)
[2023-07-18 21:33] LABS: Ammonia < 9 umol/L (9-30)
[2023-07-18 21:52] LABS: Creatine Kinase 239 U/L (55-170)
[2023-07-18 21:58] LABS: Ethanol 474 mg/dL (<10)
[2023-07-18 22:06] VITALS: BP 116/73; PULSE 116; RESP 18; O2SAT 94
[2023-07-18 22:50] LABS: Appearance Urine Clear (Clear); Bacteria Urine None Seen /hpf; Bilirubin Urine Negative (Negative); Blood Urine Negative (Negative); Color Urine Yellow (Yellow); Glucose Urine UA Negative (Negative); Ketones Urine 1+ mg/dL (Negative); Leukocyte Esterase Ur Negative LEU/UL (Negative); Nitrate Urine Negative (Negative); Non Pathogenic Casts 0-2; Protein Urine 2+ mg/dL (Negative); RBC Urine 0-2 /hpf (0-2); Squamous Epithelial Cell Urine None Seen /hpf (Few); WBC Urine 0-5 /hpf (0-3)
[2023-07-18 22:53] LABS: Add Urine Microscopic? YES; Specific Grav Ur 1.061 (1.001-1.035)
[2023-07-18 23:04] LABS: Amphetamine Screen Urine Negative (Negative); Barbiturate Screen Urine Negative (Negative); Benzodiazepines Screen Urine Negative (Negative); Cannabinoid Screen Urine Positive (Negative); Cocaine Screen Urine Negative (Negative); Methadone Screen Urine Negative (Negative); Opiate Screen Urine Negative (Negative); Phencyclidine Screen Urine Negative (Negative)
[2023-07-19] VITALS (23 sets, daily range): BP systolic 126–152; BP diastolic 68–94; PULSE 66–106; RESP 14–22; TEMP 36.4–37.1; O2SAT 92–100; BMI 21.9
--- NOTE | 2023-07-19 00:10 | PM.IMHP ---
H&P: HPI History of Present Illness Date/Time: 07/19/23 00:10 Chief Complaint: Alcohol withdrawal Narrative: Patient is a 37-year-old male with history of alcohol abuse here today with alcohol intoxication.? He states that he remembers drinking vodka last night, is unsure of how he ended up in someone's yd.? EMS brought him into the emergency department more alert en route and told EMS he had been drinking. He denies any pain. Alert, oriented to self and time. Also complain of some coffee-ground emesis 1 episode which no fever chills nausea vomiting diarrhea or tarry stool Review of Systems Review of Systems: No fevers chills nausea vomiting. No double vision no blurry vision. No difficulty hearing or sinus complaints. No chest pain shortness of breath fever palpitation dizziness ankle swelling. No coughing wheezing chills. No nausea constipation diarrhea abdominal pain reflux. No urgency frequency of urination. No hematuria. No skin rash eczema. No anxiety depression difficulty sleeping. No bleeding gums enlarged glands. No muscle ache back pain joint stiffness. No loss of strength numbness headache tremor or loss of memory. [facility] Past Medical History Medical History Alcohol abuse Family History Family History (Updated 07/19/23 @ 01:54 by Mariel Gonzalez RN) Father Malignant neoplasm of prostate Social History Social History Smoking packs per day: 0.5 Smoking cigarettes per day: 10.0 Years smoked: 19 Smoking pack-years: 9.50 Smoking status: Current every day smoker Tobacco type: cigarettes Second hand tobacco smoke exposure: No Alcohol intake: current Drinks per week: 80 Substance use: current Substance use type: marijuana Other substance usage details: former use of cocaine, mushrooms, delisa Last use: 2 months ago Do You Feel Safe in your Home?: Yes Lack of Transportation: No Lack of Food: Never True Current Housing: I Have Housing Concerned About Future Housing: No Difficulty Paying Gas/Electric Bills: No Difficulty Paying for Meds: No Currently Unemployed: YES Education: Decline to Answer Difficulty w/ Childcare or Family Care: No Spiritual care concerns: No Meds Home Medications and Allergies Home Medications Medication Instructions Recorded Confirmed Type No Home Medications 07/19/23 07/19/23 History Allergies Allergy/AdvReac Type Severity Reaction Status Date / Time No Known Allergies Allergy Mild Verified 07/19/23 01:09 Vital Signs Vital Signs - 24 hr 07/18/23 19:02 07/18/23 22:06 Temperature 37.2 C Pulse Rate 122 H 116 H Respiratory Rate 20 18 Blood Pressure 134/93 H 116/73 Pulse Oximetry 97 94 Oxygen Delivery Room Air Exam Narrative: GENERAL: Well appearing, no acute distress. HEAD: Normocephalic, atraumatic. NECK: Supple. No adenopathy, no masses. RESPIRATORY: respirations nonlabored. , no rales, wheezing. CARDIOVASCULAR: Regular rate and rhythm without murmurs, . Peripheral pulses 2+ and equal bilaterally. ABDOMINAL: Soft, nontender, nondistended, no hepatosplenomegaly. Normoactive BS. MUSCULOSKELETAL: no Epigastric and no hypochondrial tenderness SKIN: Warm, dry, NEURO: A&O X3. Moves all extremities H&P: Results Labs Labs: Short CBC 07/18/23 Range/Units 21:13 WBC 6.2 (4.5-10.0) K/mm3 Hgb 15.0 (14.0-18.0) g/dL Hct 42.7 (42.0-52.0) % Plt Count 108 L D (150-375) k/mm3 BMP 07/18/23 21:13 Sodium 142 Potassium 3.8 Chloride 100 Carbon Dioxide 31 H BUN 10 Creatinine 0.50 L Glucose 111 H Calcium 8.4 Cardiac Enzymes 07/18/23 Range/Units 21:12 Total Creatine Kinase 239 H (55-170) U/L Liver Function 07/18/23 Range/Units 21:13 Total Bilirubin 0.6 (0.2-1.3) mg/dL AST 101 H (17-59) U/L ALT 40 (6-50) U/L Alkaline Phosphatase 80 (3
[2023-07-19] MEDS: DEXTROSE 5%/0.45% SOD CHL 1,000 ML 125 ML IV CONT ×2 (00:48→08:49)
[2023-07-19] MEDS: PHENobarbitaL sodium (*CRX) 130 MG/ML VIAL 100 MG IV PUSH (00:48)
[2023-07-19 05:08] LABS: Basophils Absolute Auto 0.1 K/mm3 (0.0-0.1); Basophils Percent Auto 1.1 % (0.2-1.2); Eosinophils Percent Auto 0.5 % (0-4.4); Hematocrit 39.5 % (42.0-52.0); Hemoglobin 13.5 g/dL (14.0-18.0); Immature Granulocyte Absolute 0.02 K/mm3 (0.00-0.031); Immature Granulocyte Percent A 0.3 % (0-0.5); Immature Platelet Fraction Pct 3.1 % (0.9-11.2); Lymphocytes Absolute Auto 1.89 K/mm3 (0.9-3.2); Lymphocytes Percent Auto 28.4 % (18.3-44.2); Mean Corpuscular HGB Conc 34.2 g/dl (32-36); Mean Corpuscular Hemoglobin 32.5 pg (26-34); Mean Corpuscular Volume 95.2 fl (80-100); Mean Platelet Volume 9.3 fl (7.4-10.4); Monocytes Absolute Auto 0.6 K/mm3 (0.1-0.6); Monocytes Percent Auto 8.7 % (2.6-8.5); Neutrophils Absolute Auto 4.1 K/mm3 (1.3-6.7); Platelet Count Result 93 k/mm3 (150-375); Red Blood Count 4.15 M/mm3 (4.6-6.20); Red Cell Distribution Width 14.3 % (11.5-14.5); White Blood Count 6.7 K/mm3 (4.5-10.0)
[2023-07-19 05:19] LABS: Alanine Aminotransferase 39 U/L (6-50); Alkaline Phosphatase 57 U/L (38-126); Anion Gap 6 mmol/L (4-12); Aspartate Amino Transferase 94 U/L (17-59); Bilirubin,Total 0.7 mg/dL (0.2-1.3); Blood Urea Nitrogen 9 mg/dL (9-20); Calcium 7.8 mg/dL (8.4-10.2); Carbon Dioxide 33 mmol/L (22-30); Chloride 99 mmol/L (98-107); Estimated CRCL calculation 180 ml/min; Estimated Glomerular Filt Rate > 60; Glucose 110 mg/dL (65-110); Potassium 3.1 mmol/L (3.4-5.0); Sodium 138 mmol/L (137-145)
[2023-07-19 05:46] LABS: Hypochromasia 1+; Platelet Estimate Decreased (Adequate); Schistocytes None Seen; Stomatocytes 1+
--- NOTE | 2023-07-19 08:24 | ADMGEN ---
This patient, Darian Sue, was admitted to IMU Room 232-01. Patient/family oriented to hospital policies and general routines including ID bracelet, bed and alarms, visiting hours, pain management, procedures, bathroom and other care routines, personal items, smoking policy, room service/diet, and visiting hours. Information on how to activate the Rapid Response Team has been discussed. Patient/Family are encouraged to report perceived risks to care and to ask questions if they do not understand what they are told or what they should do.
--- NOTE | 2023-07-19 08:30 | P.PNCROSS_ITS ---
Event Note Event Note Event Note: Patient is a 37-year-old male presented to the hospital on 07/19/2023 with coff ee-ground emesis alcohol intoxication. He was brought in by EMS after being found someone's yard. Workup in the hospital included a chest x-ray which was negative. CT of abdomen pelvis which shown esophagitis. Patient was started on CIWA protocol and given of dose of phenobarb in IV fluids while in the ED. GI consulted due to alcohol abuse history and coffee-ground emesis. This is likely due to esophageal varices. We will also start Librium. General: In no acute distress, well nourished Head: atraumatic, no encephalopathy Eyes: EOMI, PERRLA, sclera clear ENT: moist mucous membranes, nasal passages clear Neck: supple, no JVD, no adenopathy, trachea midline Cardiac: Normal S1 and S2. Regular rate and rhythm, No murmur, gallops or friction rubs, peripheral pulses intact. Respiratory: Lungs clear to auscultation, no adventitious lung sounds, currently on room air Gastrointestinal: soft, non-distended, non-tender, normoactive bowel sounds. : voiding without difficulty. Extremities: moves all extremities well, no edema, good ROM, strength 5/5 Skin: clean, dry, intact. No wounds or lesions. Neuro: Alert and oriented x4, cranial nerves intact, no neuro deficits. Tremors noted Psych: normal mood, normal affect, interactive
[2023-07-19] MEDS: THIAMINE HCL 200 MG/2 ML VIAL 100 MG IV PUSH (08:49)
[2023-07-19] MEDS: PANTOPRAZOLE SODIUM IV 40 MG VIAL IV PUSH ×2 (08:49→20:37)
[2023-07-19 12:07] LABS: Glucose Point of Care 115 mg/dl (65-105)
[2023-07-19] MEDS: LORazepam INJ (*CRX) 2 MG/ML VIAL IV PUSH (13:05)
[2023-07-19] MEDS: LACTATED RINGERS 1,000 ML 150 ML IV CONT (13:18)
--- NOTE | 2023-07-19 13:49 | WPDANESEPPF ---
Anes - Initial Pre Proc Eval Procedure: Operation Date: 07/19/23 15:30 Proposed Procedures p Esophagogastroduodenoscopy - Miky Loza MD Date/Time: 07/19/23 13:49 Surgeon: José Antonio Beard MD Pre Op Diagnosis: Alc Intox,GI Bleed,Potential for Compicated Withdr Patient Data Age: 37 Gender: M Height: 1.85 m Weight: 75.3 kg Last Vital Signs Temp 98.7 F 07/19/23 13:19 Pulse 102 H 07/19/23 13:19 Resp 18 07/19/23 13:19 BP 144/93 H 07/19/23 13:19 Pulse Ox 97 07/19/23 13:19 O2 Del Method Room Air 07/19/23 13:19 Allergies Allergy/AdvReac Type Severity Reaction Status Date / Time No Known Allergies Allergy Mild Verified 07/19/23 13:14 Home Medications Medication Instructions Recorded Confirmed Type No Home Medications 07/19/23 07/19/23 History Laboratory Tests 07/18/23 07/18/23 07/18/23 21:12 21:13 22:38 WBC 6.2 K/mm3 (4.5-10.0) RBC 4.59 L M/mm3 (4.6-6.20) Hgb 15.0 g/dL (14.0-18.0) Hct 42.7 % (42.0-52.0) MCV 93.0 fl (80-100) MCH 32.7 pg (26-34) MCHC 35.1 g/dl (32-36) RDW 14.6 H % (11.5-14.5) Plt Count 108 L D k/mm3 (150-375) MPV 9.1 fl (7.4-10.4) Immature Gran % (Auto) 0.2 % (0-0.5) Neut % (Auto) 56.7 % (45.5-73.1) Lymph % (Auto) 33.0 % (18.3-44.2) [place] % (Auto) 9.1 H % (2.6-8.5) Eos % (Auto) 0.2 % (0-4.4) Baso % (Auto) 0.8 % (0.2-1.2) Lymph # (Auto) 2.03 K/mm3 (0.9-3.2) [place] # (Auto) 0.6 K/mm3 (0.1-0.6) Eos # (Auto) 0.0 K/mm3 (0-0.3) Baso # (Auto) 0.1 K/mm3 (0.0-0.1) Abs Immat Gran (auto) 0.01 K/mm3 (0.00-0.031) Absolute Neuts (auto) 3.5 K/mm3 (1.3-6.7) Absolute Nucleated RBC 0.000 K/mm3 (0.0-0.012) Nucleated RBC % 0.0 % (0.0-0.2) Platelet Estimate % Immature Plt Fraction Hypochromasia Stomatocytes Schistocytes PT 11.9 Seconds (11.1-14.7) INR 0.9 APTT 24.1 Seconds (22.3-36.8) Sodium 142 mmol/L (137-145) Potassium 3.8 mmol/L (3.4-5.0) Chloride 100 mmol/L (98-107) Carbon Dioxide 31 H mmol/L (22-30) Anion Gap 11 mmol/L (4-12) BUN 10 mg/dL (9-20) Creatinine 0.50 L mg/dL (0.7-1.3) Estim Creat Clear Calc 179 ml/min Estimated GFR > 60 (59 - ) Glucose 111 H mg/dL (65-110) POC Capillary Glucose Calcium 8.4 mg/dL (8.4-10.2) Magnesium 1.9 mg/dL (1.6-2.3) Total Bilirubin 0.6 mg/dL (0.2-1.3) AST 101 H U/L (17-59) ALT 40 U/L (6-50) Alkaline Phosphatase 80 U/L (38-126) Ammonia < 9 L umol/L (9-30) Total Creatine Kinase 239 H U/L (55-170) Total Protein 8.0 g/dL (6.3-8.2) Albumin 4.5 g/dL (3.5-5.1) Urine Color Yellow (Yellow) Urine Appearance Clear (Clear) Urine pH 6.0 (5.0-9.0) Ur Specific [place] 1.061 H (1.001-1.035) Urine Protein 2+ H mg/dL (Negative) Urine Glucose (UA) Negative mg/dL (Negative) Urine Ketones 1+ H mg/dL (Negative) Ur Blood (Man) Negative (Negative) Urine Nitrate Negative (Negative) Urine Bilirubin Negative (Negative) Urine Urobilinogen 1.0 mg/dL (<2.0) Leukocyte Esterase Rfl Negative JUDITH/UL (Negative) Urine RBC 0-2 /hpf (0-2) Urine WBC 0-5 /hpf (0-3) Ur Squamous Epith Cells None seen /hpf (Few) Urine Bacteria None seen /hpf Urine Casts 0-2 Urine Opiates Screen Negative (Negative) Urine Methadone Screen Negativ
--- NOTE | 2023-07-19 13:50 | WPDGICN ---
Assessment and Plan Assessment and plan (1) Hematemesis: Code(s): K92.0 - Hematemesis Status: Acute Assessment and Plan: will proceed with urgent EGD will assess if esophagitis (suggested by CT scan), also if varices, ulcers, etc already on iv protonix (2) GIB (gastrointestinal bleeding): Code(s): K92.2 - Gastrointestinal hemorrhage, unspecified Status: Acute Assessment and Plan: egd monitor for more signs of bleeding (3) Thrombocytopenia: Code(s): D69.6 - Thrombocytopenia, unspecified Status: Acute Assessment and Plan: probably alcohol related wonder if could have some liver dysfunction (4) Elevated AST (SGOT): Code(s): R74.01 - Elevation of levels of liver transaminase levels Status: Acute Assessment and Plan: will get also hepatitis panel (5) Alcohol withdrawal: Qualifiers: Complication of substance-induced condition: uncomplicated Qualified Code(s): F10.930 - Alcohol use, unspecified with withdrawal, uncomplicated Code(s): F10.239 - Alcohol dependence with withdrawal, unspecified Status: Acute Assessment and Plan: librium, thiamine monitor (6) Hypokalemia: Code(s): E87.6 - Hypokalemia Status: Acute Assessment and Plan: repleting GI Consult Note Consult date/time: 07/19/23 13:50 Reason for consult: hematemesis, alcoholic HPI: Darian Sue is a 37 year old male who is an alcoholic, drinking 1-2 pints of vodka since he was 19yo, couple of times tried inpatient rehab. Currently he is not taking any meds and he normally does not see doctor, never had EGD. He came here after had bright red hematemesis followed byt another large amount of coffee ground emesis, some abdominal discomfort. Last drink was yesterday. hgb 13.5 from 15, ast 94, normal bili, k 3.1, plat 93. CT scan reviewed and consistent with esophagitis. Review of Systems Constitutional: Constitutional: Denies chills Eyes: Eyes: Denies blurry vision ENT: Reports Normal hearing present Cardiovascular: Cardiovascular: Denies chest pain Respiratory: Respiratory: Denies cough Gastrointestinal: Gastrointestinal: Reports abdominal pain, Reports nausea, Reports vomiting and Reports hematemesis Genitourinary: Genitourinary: Denies dysuria Musculoskeletal: Musculoskeletal: Denies neck pain Integumentary/Breasts: Skin/Breast: Denies rash Neurologic: Denies confusion Psychiatric: Psychiatric: Reports anxiety PMFSH Past Medical History Medical History (Updated 07/19/23 @ 14:08 by Miky Loza MD) Alcohol abuse GIB (gastrointestinal bleeding) Hematemesis Hypokalemia Family History Family History (Updated 07/19/23 @ 01:54 by Mariel Gonzalez RN) Father Malignant neoplasm of prostate Social History Social History Smoking packs per day: 0.5 Smoking cigarettes per day: 10.0 Years smoked: 19 Smoking pack-years: 9.50 Smoking status: Current every day smoker Tobacco type: cigarettes Second hand tobacco smoke exposure: No Alcohol intake: current Drinks per week: 80 Substance use: current Substance use type: marijuana Other substance usage details: former use of cocaine, mushrooms, delisa Last use: 2 months ago Do You Feel Safe in your Home?: Yes Lack of Transportation: No Lack of Food: Never True Current Housing: I Have Housing Concerned About Future Housing: No Difficulty Paying Gas/Electric Bills: No Difficulty Paying for Meds: No Currently Unemployed: YES Education: Decline to Answer Difficulty w/ Childcare or Family Care: No Spiritual care concerns: No Meds Home Medications and Allergies Home Medications Medication Instructions Recorded Confirmed Type No Home Medications 07/19/23 07/19/23 History Allergies Allergy/AdvReac Type Severity Reaction Status Date /
[2023-07-19] MEDS: SUCRALFATE SUSP 100 MG/ML 10 ML UDC 1000 MG PO ×2 (17:02→20:37)
[2023-07-19] MEDS: chlordiazePOXIDE (*CRX) 25 MG CAPSULE PO ×2 (18:48→23:33)
[2023-07-19] MEDS: LACTATED RINGERS 1,000 ML 50 ML IV CONT (20:34)
[2023-07-19] MEDS: BENZOCAINE/MENTHOL (*BKC) 18 EA LOZENGE 1 LOZENGE PO (20:35)
[2023-07-19 23:43] LABS: Glucose Point of Care 150 mg/dl (65-105)
[2023-07-20] VITALS (10 sets, daily range): BP systolic 132–146; BP diastolic 79–90; PULSE 56–84; RESP 18–20; TEMP 36.3; O2SAT 98–99
[2023-07-20 04:12] LABS: Anion Gap 2 mmol/L (4-12); Blood Urea Nitrogen 6 mg/dL (9-20); Calcium 9.1 mg/dL (8.4-10.2); Carbon Dioxide 38 mmol/L (22-30); Chloride 93 mmol/L (98-107); Creatine Kinase 125 U/L (55-170); Estimated CRCL calculation 219 ml/min; Estimated Glomerular Filt Rate > 60; Glucose 86 mg/dL (65-110); Magnesium 1.5 mg/dL (1.6-2.3); Potassium 3.1 mmol/L (3.4-5.0); Sodium 133 mmol/L (137-145)
[2023-07-20 04:46] LABS: Hepatitis B Surface Antigen Negative (Negative)
[2023-07-20 04:52] LABS: HAV RESULT Negative (Negative); Hepatitis B Core IgM Result Negative (Negative)
[2023-07-20 05:03] LABS: Hepatitis C Virus Antibody Negative (Negative)
[2023-07-20] MEDS: SUCRALFATE SUSP 100 MG/ML 10 ML UDC 1000 MG PO (06:57)
[2023-07-20] MEDS: chlordiazePOXIDE (*CRX) 25 MG CAPSULE PO ×2 (06:57→11:59)
[2023-07-20] MEDS: BENZOCAINE/MENTHOL (*BKC) 18 EA LOZENGE 1 LOZENGE PO (08:50)
[2023-07-20] MEDS: POTASSIUM CHLORIDE 20 MEQ ER TABLET 40 MEQ PO (08:51)
[2023-07-20] MEDS: PANTOPRAZOLE SODIUM IV 40 MG VIAL IV PUSH (08:51)
[2023-07-20] MEDS: THIAMINE HCL 200 MG/2 ML VIAL 100 MG IV PUSH (08:51)
[2023-07-20 08:58] LABS: Basophils Percent Auto 0.8 % (0.2-1.2); Eosinophils Absolute Auto 0.1 K/mm3 (0-0.3); Eosinophils Percent Auto 1.7 % (0-4.4); Hematocrit 38.6 % (42.0-52.0); Hemoglobin 13.4 g/dL (14.0-18.0); Immature Granulocyte Absolute 0.03 K/mm3 (0.00-0.031); Immature Granulocyte Percent A 0.6 % (0-0.5); Immature Platelet Fraction Pct 5.7 % (0.9-11.2); Lymphocytes Percent Auto 16.8 % (18.3-44.2); Mean Corpuscular HGB Conc 34.7 g/dl (32-36); Mean Corpuscular Hemoglobin 32.8 pg (26-34); Mean Corpuscular Volume 94.4 fl (80-100); Mean Platelet Volume 9.4 fl (7.4-10.4); Monocytes Absolute Auto 0.3 K/mm3 (0.1-0.6); Monocytes Percent Auto 5.5 % (2.6-8.5); Neutrophils Absolute Auto 3.6 K/mm3 (1.3-6.7); Neutrophils Percent Auto 74.6 % (45.5-73.1); Platelet Count Result 76 k/mm3 (150-375); Red Blood Count 4.09 M/mm3 (4.6-6.20); Red Cell Distribution Width 13.8 % (11.5-14.5); White Blood Count 4.8 K/mm3 (4.5-10.0)
[2023-07-20 09:05] LABS: Magnesium 1.4 mg/dL (1.6-2.3)
[2023-07-20] MEDS: MAGNESIUM SULFATE 3GM/D5W100ML 3 GM/100 ML BAG IVPB (09:07)
--- NOTE | 2023-07-20 09:34 | PM.DS ---
DS: Admitting Diagnosis Discharge Date 07/20/23 Admitting Diagnosis Alcohol intoxication Alcohol withdrawal Thrombocytopenia DS: Discharge Diagnosis Discharge Diagnosis (1) Alcohol intoxication: Qualifiers: Complication of substance-induced condition: with delirium Qualified Code(s): F10.921 - Alcohol use, unspecified with intoxication delirium Code(s): F10.929 - Alcohol use, unspecified with intoxication, unspecified Status: Acute (2) Alcohol withdrawal: Qualifiers: Complication of substance-induced condition: uncomplicated Qualified Code(s): F10.930 - Alcohol use, unspecified with withdrawal, uncomplicated Code(s): F10.239 - Alcohol dependence with withdrawal, unspecified Status: Acute (3) Thrombocytopenia: Code(s): D69.6 - Thrombocytopenia, unspecified Status: Acute DS: Summary Hospital Course Reason for hospitalization: Alcohol intoxication Alcohol withdrawal Thrombocytopenia Hospital Course: 07/19/23: Patient is a 37-year-old male presented to the hospital on 07/19/2023 with coffee-ground emesis alcohol intoxication.? He was brought in by EMS after being found someone's yard.? Workup in the hospital included a chest x-ray which was negative.? CT of abdomen pelvis which shown esophagitis.? Patient was started on CIWA protocol and given of dose of phenobarb in IV fluids while in the ED. GI consulted due to alcohol abuse history and coffee-ground emesis.? This is likely due to esophageal varices.? We will also start Librium. 07/20/23: Patient had EGD done yesterday which shown esophagitis and gastritis. Was placed on Carafate and Protonix. Patient has had no new complaints today. Labs today showing hemoglobin 13.4 sodium 132, potassium 3.2, chloride 94, magnesium 1.4. Patient is stable for discharge at this time. He will need to follow up with GI in 2 weeks for the results of his biopsies. Final diagnosis: Esophagitis, gastritis, alcohol abuse, alcohol withdrawal, thrombocytopenia Status at Discharge Cognitive/behavioral status at discharge: Alert oriented x4 Functional status at discharge: independent ambulation Overall status at discharge: patient is progressing back to baseline Time Spent with Patient Time attestation: Total time spent providing and/or coordinating discharge services: Time spent: Greater than 30 minutes Exam Narrative: General: In no acute distress, well nourished Head: atraumatic, no encephalopathy Eyes: EOMI, PERRLA, sclera clear ENT: moist mucous membranes, nasal passages clear Neck: supple, no JVD, no adenopathy, trachea midline Cardiac: Normal S1 and S2.? Regular rate and rhythm, No murmur, gallops or friction rubs, peripheral pulses intact. Respiratory: Lungs clear to auscultation, no adventitious lung sounds, currently on room air Gastrointestinal: soft, non-distended, non-tender, normoactive bowel sounds. : voiding without difficulty. Extremities: moves all extremities well, no edema, good ROM, strength 5/5 Skin: clean, dry, intact. No wounds or lesions. Neuro: Alert and oriented x4, cranial nerves intact, no neuro deficits.? Tremors noted Psych: normal mood, normal affect, interactive DS: Data Data Completed and Pending Completed studies during hospitalization: Abdomen/pelvis CT Chest x-ray Pending studies at discharge: Pending at discharge 07/19/23 14:07 Surgical [PTH] Routine Labs on day of discharge: Labs from last 24 hours 07/20/23 07/20/23 07/19/23 08:35 03:42 23:33 WBC 4.8 RBC 4.09 L Hgb 13.4 L Hct 38.6 L MCV 94.4 MCH 32.8 MCHC 34.7 RDW 13.8 Plt Count 76 L MPV 9.4 Immature Gran % (Auto) 0.6 H Neut % (Auto) 74.6 H Lymph % (Auto) 16.8 L [place] % (Auto) 5.5 Eos % (Auto) 1.7 Baso % (Auto) 0.8 Lymph # (Auto) 0.80 L [place] # (Auto) 0.3 Eos # (Auto) 0.1 Baso # (Auto) 0.0 Abs Immat Gran (auto) 0.03 Absolute Neuts (auto) 3.6 A
[2023-07-20 12:03] LABS: Glucose Point of Care 126 mg/dl (65-105)
[2023-07-20 12:03] LABS: Alanine Aminotransferase 44 U/L (6-50); Albumin Level 4.1 g/dL (3.5-5.1); Alkaline Phosphatase 58 U/L (38-126); Anion Gap 5 mmol/L (4-12); Aspartate Amino Transferase 110 U/L (17-59); Bilirubin,Total 1.5 mg/dL (0.2-1.3); Blood Urea Nitrogen 6 mg/dL (9-20); Calcium 9.3 mg/dL (8.4-10.2); Carbon Dioxide 33 mmol/L (22-30); Chloride 94 mmol/L (98-107); Estimated CRCL calculation 182 ml/min; Estimated Glomerular Filt Rate > 60; Glucose 160 mg/dL (65-110); Potassium 3.2 mmol/L (3.4-5.0); Sodium 132 mmol/L (137-145)
--- NOTE | 2023-07-20 12:38 | WPDGIPROGNO ---
Progress Note: A&P Assessment and Plan (1) Ulcerative esophagitis: Code(s): K22.10 - Ulcer of esophagus without bleeding Status: Acute Assessment and Plan: no more bleeding h/h stable and he is eating will prescribe protonix bid for 3 months home soon he should not drink any more alcohol, he says that is planning to quit for good and seek help follow-up office in 4-6 weeks (2) Hematemesis: Code(s): K92.0 - Hematemesis Status: Acute Assessment and Plan: from esophagitis resolved (3) Alcohol intoxication: Qualifiers: Complication of substance-induced condition: with delirium Qualified Code(s): F10.921 - Alcohol use, unspecified with intoxication delirium Code(s): F10.929 - Alcohol use, unspecified with intoxication, unspecified Status: Acute (4) Elevated AST (SGOT): Code(s): R74.01 - Elevation of levels of liver transaminase levels Status: Acute Assessment and Plan: from alcohol use (5) Hypokalemia: Code(s): E87.6 - Hypokalemia Status: Acute Assessment and Plan: treated (6) Thrombocytopenia: Code(s): D69.6 - Thrombocytopenia, unspecified Status: Acute Assessment and Plan: from alcohol use he may have some liver disease, can follow-up in office egd without varices or signs of portal hypertension Subjective Date/time seen: 07/20/23 12:38 Interval history: egd showed erosive esophagitis with non bleeding linear ulcers no more n/v and he is eating feeling much better Review of Systems Review of Systems: All systems reviewed & are unremarkable except as noted in HPI and below Exam Const: General: comfortable and no acute distress HENMT: Face/Nose/Sinus: Normal nares present Eyes: General: appearance normal, both eyes and all related structures Neck: Neck: supple Resp: Auscultation: clear to auscultation bilaterally Cardio: Rate: regular rate Rhythm: regular rhythm GI: Inspection: non-distended GI Palp: Yes Soft to palpation, No Tenderness to palpation present (GI) and No Guarding due to palpation present (GI) Auscultation: normal bowel sounds Skin: General skin exam: normal color Neuro: Speech: normal speech Motor exam (neuro): 5/5 motor strength present throughout Extrem: General: normal to inspection Psych: Affect: Anxious affect present Objective Data Vital Signs Vital Signs: Vital Signs - 24 hr 07/19/23 13:19 07/19/23 14:08 07/19/23 14:18 Temperature 98.7 F Pulse Rate 102 H 85 81 Respiratory Rate 18 14 21 H Blood Pressure 144/93 H 126/81 131/90 Pulse Oximetry 97 98 100 Oxygen Delivery Room Air Room Air Room Air 07/19/23 14:28 07/19/23 15:24 07/19/23 16:00 Temperature 98.2 F Pulse Rate 73 76 83 Respiratory Rate 22 H 18 Blood Pressure 141/94 H 127/74 Pulse Oximetry 100 98 Oxygen Delivery Room Air 07/19/23 18:00 07/19/23 20:29 07/19/23 23:57 Temperature 97.9 F 97.6 F Pulse Rate 74 66 72 Respiratory Rate 18 18 Blood Pressure 152/69 H 136/80 Pulse Oximetry 97 96 Oxygen Delivery 07/19/23 20:00 07/19/23 22:00 07/20/23 00:00 Temperature Pulse Rate 80 68 68 Respiratory Rate Blood Pressure Pulse Oximetry Oxygen Delivery 07/19/23 20:00 07/20/23 00:00 07/20/23 02:00 Temperature Pulse Rate 56 L Respiratory Rate Blood Pressure Pulse Oximetry Oxygen Delivery Room Air Room Air 07/20/23 04:47 07/20/23 04:00 07/20/23 04:00 Temperature 97.3 F L Pulse Rate 60 73 Respiratory Rate 18 Blood Pressure 132/79 Pulse Oximetry 99 Oxygen Delivery Room Air 07/20/23 05:52 07/20/23 08:20 07/20/23 11:18 Temperature 97.3 F L 97.4 F L Pulse Rate 57 L 84 70 Respiratory Rate 18 20 Blood Pressure 145/90 H 146/84 H Pulse Oximetry 98 98 Oxygen Delivery Intake/Output Intake/Output: Intake & Output 07/17/23 07/18/23 07/19/23 07/20/23 23:59 23:59 23:59 23:59 Intake [place]
== END 2023-07-20 15:35 | disposition home or self-care (01) ==
LOC: ANHED 20:31 → ANHIMU 07-19 01:34
PROVIDERS: Internal Medicine; Internal Medicine Gastroenterology; Nurse Practitioner Acute Care; Student in an Organized Health Care Education/Training Program; Admitting Provider Internal Medicine; Emergency Provider Student in an Organized Health Care Education/Training Program; Visit Provider Internal Medicine
PROC: 0DJ08ZZ Inspection of Upper Intestinal Tract, Via Natural or Artificial Opening Endoscopic (ICD-10-PCS; CPT 43235; principal; 2023-07-19 15:30)
DX: K21.00 Gastro-esophageal reflux disease with esophagitis, without bleeding (principal); K29.70 Gastritis, unspecified, without bleeding; F10.221 Alcohol dependence with intoxication delirium; F10.231 Alcohol dependence with withdrawal delirium; D69.6 Thrombocytopenia, unspecified; F12.10 Cannabis abuse, uncomplicated; R79.89 Other specified abnormal findings of blood chemistry; Y90.8 Blood alcohol level of 240 mg/100 ml or more; F17.210 Nicotine dependence, cigarettes, uncomplicated
CPT/HCPCS: 43239; 36415; 71046; 74177; 80048; 80053; 80074; 80307; 81001; 82140; 82550; 82948; 83735; 85025; 85055; 85610; 85730; 88305; 96361; 96374; 96375; 99285; A9270; C9113; G0378; G0379; J2060; J2405; J2560; J2704; J3411; J3475; J7030; J7120; Q9967

== ENCOUNTER 2023-07-26 12:55 | Emergency (ER) | payer BC, SELFPAY ==
[2023-07-26] VITALS (10 sets, daily range): BP systolic 98–122; BP diastolic 64–83; PULSE 72–92; RESP 14–20; TEMP 36.2; O2SAT 94–100
[2023-07-26 13:16] LABS: Basophils Absolute Auto 0.1 K/mm3 (0.0-0.1); Basophils Percent Auto 1.6 % (0.2-1.2); Eosinophils Absolute Auto 0.1 K/mm3 (0-0.3); Eosinophils Percent Auto 1.1 % (0-4.4); Hematocrit 42.2 % (42.0-52.0); Immature Granulocyte Absolute 0.18 K/mm3 (0.00-0.031); Immature Granulocyte Percent A 2.8 % (0-0.5); Lymphocytes Percent Auto 28.3 % (18.3-44.2); Mean Corpuscular HGB Conc 33.2 g/dl (32-36); Mean Corpuscular Hemoglobin 33.2 pg (26-34); Mean Platelet Volume 8.3 fl (7.4-10.4); Monocytes Absolute Auto 0.6 K/mm3 (0.1-0.6); Monocytes Percent Auto 8.7 % (2.6-8.5); Neutrophils Absolute Auto 3.7 K/mm3 (1.3-6.7); Neutrophils Percent Auto 57.5 % (45.5-73.1); Platelet Count Result 320 k/mm3 (150-375); Red Blood Count 4.22 M/mm3 (4.6-6.20); Red Cell Distribution Width 15.5 % (11.5-14.5); White Blood Count 6.4 K/mm3 (4.5-10.0)
[2023-07-26 13:17] LABS: Appearance Urine Clear (Clear); Bilirubin Urine Negative (Negative); Blood Urine Negative (Negative); Color Urine Yellow (Yellow); Glucose Urine UA Negative (Negative); Ketones Urine Negative (Negative); Leukocyte Esterase Ur Negative LEU/UL (Negative); Nitrate Urine Negative (Negative); Protein Urine Negative (Negative); Specific Grav Ur 1.006 (1.001-1.035); Urobilinogen Urine 0.2 mg/dL (<2.0)
[2023-07-26 13:18] LABS: Add Urine Microscopic? NO
--- NOTE | 2023-07-26 13:30 | ED.ALCOHOL ---
HPI - Alcohol General Chief Complaint: Alcohol Stated Complaint: ETOH Time Seen by Provider: 07/26/23 13:22 History of Present Illness HPI narrative: 37-year-old male with past medical history of alcohol abuse presents via EMS for alcohol intoxication. EMS brought patient in after he was found intoxicated. Bystanders called 911. Patient admits to drinking a large amount of vodka through the night and in the morning. Patient has multiple prior visits for the same and actually had an EGD 7 days prior to arrival. Related Data Allergies Allergy/AdvReac Type Severity Reaction Status Date / Time No Known Allergies Allergy Mild Verified 07/26/23 13:01 Review of Systems Review of Systems: CONSTITUTIONAL: Denies fever, chills, or sweats. EYES: Denies visual changes, redness, or discharge. ENT: Denies rhinorrhea, congestion, sore throat, or otalgia. CARDIOVASCULAR: Denies chest pain, palpitations, or edema. RESPIRATORY: Denies cough or dyspnea. GASTROINTESTINAL: Denies abdominal pain, nausea, vomiting, or diarrhea. GENITOURINARY: Denies dysuria or hematuria. SKIN: Denies rash or itching. MUSCULOSKELETAL: Denies back pain, joint pain, or myalgia. NEUROLOGIC: Denies headache, numbness, or weakness. PSYCHIATRIC: Denies anxiety or depression. [facility] Past Medical History Medical History Alcohol abuse GIB (gastrointestinal bleeding) Hematemesis Hypokalemia Ulcerative esophagitis Family History Family History Father Malignant neoplasm of prostate Social History Social History Smoking packs per day: 0.5 Smoking cigarettes per day: 10.0 Years smoked: 19 Smoking pack-years: 9.50 Smoking status: Current every day smoker Tobacco type: cigarettes Second hand tobacco smoke exposure: No Alcohol intake: current Drinks per week: 80 Substance use: current Substance use type: marijuana Other substance usage details: former use of cocaine, mushrooms, delisa Last use: 2 months ago Do You Feel Safe in your Home?: Yes Lack of Transportation: No Lack of Food: Never True Current Housing: I Have Housing Concerned About Future Housing: No Difficulty Paying Gas/Electric Bills: No Difficulty Paying for Meds: No Currently Unemployed: YES Education: Decline to Answer Difficulty w/ Childcare or Family Care: No Spiritual care concerns: No Exam Narrative: GENERAL: Well-appearing, well-nourished, and in no acute distress, smells of etoh, no signs of trauma HEAD: Normocephalic, atraumatic. EYES: PERRLA and EOMI. ENT: Nares clear, no rhinorrhea or epistaxis. Mucous membranes moist. NECK: Supple. CHEST: Clear to auscultation. No respiratory distress. HEART: Regular rate and rhythm. No murmur heard. Normal peripheral pulses. ABDOMEN: Soft, nontender, nondistended, normal active bowel sounds. EXTREMITIES: Normal range of motion. No edema. SKIN: Warm, dry, no rash. NEURO: No focal deficits. Alert and oriented x3. PSYCH: Normal mood and affect. Course Vital Signs Vital signs: Vital Signs Temperature 97.1 F L 07/26/23 13:07 Pulse Rate 81 07/26/23 13:07 Respiratory Rate 16 07/26/23 13:07 Blood Pressure 98/65 L 07/26/23 13:07 Pulse Oximetry 94 07/26/23 13:07 Temperature 97.1 F L 07/26/23 13:07 Pulse Rate 74 07/26/23 19:46 Respiratory Rate 17 07/26/23 19:46 Blood Pressure 120/79 07/26/23 19:46 Pulse Oximetry 97 07/26/23 19:46 MDM - Alcohol MDM Narrative Medical decision making narrative: 37-year-old male presents via EMS for apparent alcohol intoxication. Patient admits to drinking large amounts of vodka throughout the day. He denies trauma. No outward signs of trauma. Will observe patient while he metabolizes consumed EtOH. He has had multiple prior visits for the same.
[2023-07-26 13:35] LABS: Alanine Aminotransferase 58 U/L (6-50); Albumin Level 4.4 g/dL (3.5-5.1); Alkaline Phosphatase 63 U/L (38-126); Anion Gap 6 mmol/L (4-12); Aspartate Amino Transferase 59 U/L (17-59); Bilirubin,Total 0.3 mg/dL (0.2-1.3); Blood Urea Nitrogen 10 mg/dL (9-20); Calcium 8.4 mg/dL (8.4-10.2); Carbon Dioxide 32 mmol/L (22-30); Chloride 107 mmol/L (98-107); Estimated CRCL calculation 184 ml/min; Estimated Glomerular Filt Rate > 60; Glucose 97 mg/dL (65-110); Potassium 4.1 mmol/L (3.4-5.0); Sodium 145 mmol/L (137-145)
[2023-07-26 13:37] LABS: Amphetamine Screen Urine Negative (Negative); Barbiturate Screen Urine Negative (Negative); Benzodiazepines Screen Urine Negative (Negative); Cannabinoid Screen Urine Positive (Negative); Cocaine Screen Urine Negative (Negative); Methadone Screen Urine Negative (Negative); Opiate Screen Urine Negative (Negative); Phencyclidine Screen Urine Negative (Negative)
[2023-07-26 14:24] LABS: Ethanol 440 mg/dL (<10)
--- NOTE | 2023-07-26 16:26 | PC.NURSE ---
Patient ripped out IV at this time stating he wanted to leave. Explained to patient that is he could find sober drive MD Aquino was willing to let him go. MD Aquino notified patient wanting to speak with him.
[2023-07-26 20:40] LABS: Ethanol 299 mg/dL (<10)
--- NOTE | 2023-07-26 21:37 | PC.NURSE ---
patient ambulatory with steady gait. MD Aquino notified.
== END 2023-07-26 22:09 | disposition home or self-care (01) ==
PROVIDERS: Emergency Medicine; Emergency Provider Emergency Medicine
DX: F10.129 Alcohol abuse with intoxication, unspecified (principal); F17.210 Nicotine dependence, cigarettes, uncomplicated; Y90.8 Blood alcohol level of 240 mg/100 ml or more
CPT/HCPCS: 36415; 80053; 80307; 81003; 85025; 99283

== ENCOUNTER 2024-03-11 19:16 | Emergency (ER) | payer SELFPAY ==
[2024-03-11 19:27] VITALS: BP 121/82; PULSE 94; RESP 20; TEMP 36.6; O2SAT 100
[2024-03-11 19:54] LABS: Basophils Absolute Auto 0.1 K/mm3 (0.0-0.1); Basophils Percent Auto 1.5 % (0.2-1.2); Eosinophils Absolute Auto 0.1 K/mm3 (0-0.3); Eosinophils Percent Auto 1.9 % (0-4.4); Hematocrit 49.3 % (42.0-52.0); Hemoglobin 16.6 g/dL (14.0-18.0); Immature Granulocyte Absolute 0.02 K/mm3 (0.00-0.031); Immature Granulocyte Percent A 0.3 % (0-0.5); Lymphocytes Absolute Auto 3.08 K/mm3 (0.9-3.2); Mean Corpuscular HGB Conc 33.7 g/dl (32-36); Mean Corpuscular Hemoglobin 32.2 pg (26-34); Mean Corpuscular Volume 95.7 fl (80-100); Mean Platelet Volume 9.3 fl (7.4-10.4); Monocytes Absolute Auto 0.5 K/mm3 (0.1-0.6); Monocytes Percent Auto 8.1 % (2.6-8.5); Neutrophils Absolute Auto 2.8 K/mm3 (1.3-6.7); Neutrophils Percent Auto 42.2 % (45.5-73.1); Platelet Count Result 185 k/mm3 (150-375); Red Blood Count 5.15 M/mm3 (4.6-6.20); Red Cell Distribution Width 14.4 % (11.5-14.5); White Blood Count 6.7 K/mm3 (4.5-10.0)
[2024-03-11 20:06] LABS: Alanine Aminotransferase 25 U/L (6-50); Albumin Level 4.9 g/dL (3.5-5.1); Alkaline Phosphatase 85 U/L (38-126); Anion Gap 13 mmol/L (4-12); Aspartate Amino Transferase 48 U/L (17-59); Bilirubin,Total 0.5 mg/dL (0.2-1.3); Blood Urea Nitrogen 9 mg/dL (9-20); Calcium 8.8 mg/dL (8.4-10.2); Carbon Dioxide 30 mmol/L (22-30); Chloride 102 mmol/L (98-107); Estimated CRCL calculation 131 ml/min; Estimated Glomerular Filt Rate > 60; Glucose 90 mg/dL (65-110); Potassium 4.3 mmol/L (3.4-5.0); Sodium 145 mmol/L (137-145)
[2024-03-11 20:16] LABS: Ethanol 506 mg/dL (<10)
--- NOTE | 2024-03-11 21:15 | ED.GENADULT ---
HPI - General Adult General Chief complaint: Alcohol Stated complaint: AMS, ETOH+ Time Seen by Provider: 03/11/24 19:20 History of Present Illness HPI narrative: patient is a 38-year-old gentleman who presents emergency department with chief complaint of alcohol intoxication. The patient does well known history of alcohol abuse and reports that he was dropped out of a vehicle in front of his house but did not walk into his house and laid on the ground the patient currently states that he did not do any drinking today the patient denies suicidal or homicidal ideation Related Data Allergies Allergy/AdvReac Type Severity Reaction Status Date / Time No Known Allergies Allergy Mild Verified 07/26/23 13:01 Review of Systems Review of Systems: A 10 system review of systems was completed on the patient and is negative except for what is stated in the HPI. Nursing and ancillary documentation was reviewed. PMFSH Past Medical History Medical History Alcohol abuse GIB (gastrointestinal bleeding) Hematemesis Hypokalemia Ulcerative esophagitis Family History Family History Father Malignant neoplasm of prostate Social History Social History Smoking packs per day: 0.5 Smoking cigarettes per day: 10.0 Years smoked: 19 Smoking pack-years: 9.50 Smoking status: Current every day smoker Tobacco type: cigarettes Second hand tobacco smoke exposure: No Alcohol intake: current Drinks per week: 80 Substance use: current Substance use type: marijuana Other substance usage details: former use of cocaine, mushrooms, delisa Last use: 2 months ago Do You Feel Safe in your Home?: Yes Lack of Transportation: No Lack of Food: Never True Current Housing: I Have Housing Concerned About Future Housing: No Difficulty Paying Gas/Electric Bills: No Difficulty Paying for Meds: No Currently Unemployed: YES Education: Decline to Answer Difficulty w/ Childcare or Family Care: No Spiritual care concerns: No Exam Narrative: GENERAL: Well-appearing, well-nourished, and in no acute distress. appears to be acutely intoxicated HEAD: Normocephalic, atraumatic. EYES: PERRLA and EOMI. ENT: Nares clear, no rhinorrhea or epistaxis. Mucous membranes moist. NECK: Supple. CHEST: Clear to auscultation. No respiratory distress. HEART: Regular rate and rhythm. No murmur heard. Normal peripheral pulses. ABDOMEN: Soft, nontender, nondistended, normal active bowel sounds. EXTREMITIES: Normal range of motion. No edema. SKIN: Warm, dry, no rash. NEURO: No focal deficits. Alert and oriented x3. slow to respond PSYCH: Normal mood and affect. Course Vital Signs Vital signs: Vital Signs Temperature 36.6 C 03/11/24 19: Pulse Rate 94 03/11/24 19: Respiratory Rate 20 03/11/24 19: Blood Pressure 121/82 03/11/24 19:27 Pulse Oximetry 100 03/11/24 19:27 Oxygen Delivery Room Air 03/11/24 19: Temperature 36.7 C 03/12/24 04:56 Pulse Rate 109 H 03/12/24 04:56 Respiratory Rate 17 03/12/24 04:56 Blood Pressure 139/82 03/12/24 04:56 Pulse Oximetry 100 03/12/24 04:56 Oxygen Delivery Room Air 03/11/24 19:27 Medical Decision Making MDM Narrative Medical decision making narrative: differential diagnosis includes electrolyte abnormality, dehydration, alcohol intoxication patient is currently not suicidal or homicidal showing no signs of withdrawal laboratory studies were obtained on the patient which showed a blood alcohol level of 506 the patient is currently protecting his airway extremely drowsy and will be observed in the emergency department until a point of sobriety or he has a sober not intoxicated individual that can take custody of him and take him home patient was observed in the emergency department to the point of where he is clinically sober able ambulate without difficulty carry on a normal conversation. The patient will uber home at this point Vital Signs Vital Signs: Vital Signs Temperature 36.6 C 03/11/24 19: Pulse Rate 94 03/11/24 19: Respiratory Rate 20 03/11/24 19: Blood Pressure 121/82 03/11/24 19:27 Pulse Oximetry 100 03/11/24 19:27 Oxygen Delivery Room Air 03/11/24 19:27 Temperature 36.7 C 03/12/24 04:56 Pulse Rate 109 H 03/12/24 04:56 Respiratory Rate 17 03/12/24 04:56 Blood Pressure 139/82 03/12/24 04:56 Pulse Oximetry 100 03/12/24 04:56 Oxygen Delivery Room Air 03/11/24 19:27 Lab Data 03/11/24 19:45 03/11/24 19:45 Labs: Lab Results 03/11/24 03/12/24 Range/Units 19:45 04:51 WBC 6.7 (4.5-10.0) K/mm3 RBC 5.15 (4.6-6.20) M/mm3 Hgb 16.6 (14.0-18.0) g/dL Hct 49.3 (42.0-52.0) % MCV 95.7 (80-100) fl MCH 32.2 (26-34) pg MCHC 33.7 (32-36) g/dl RDW 14.4 (11.5-14.5) % Plt Count 185 (150-375) k/mm3 MPV 9.3 (7.4-10.4) fl Immature Gran % (Auto) 0.3 (0-0.5) % Neut % (Auto) 42.2 L (45.5-73.1) % Lymph % (Auto) 46.0 H (18.3-44.2) % [place] % (Auto) 8.1 (2.6-8.5) % Eos % (Auto) 1.9 (0-4.4) % Baso % (Auto) 1.5 H (0.2-1.2) % Lymph # (Auto) 3.08 (0.9-3.2) K/mm3 [place] # (Auto) 0.5 (0.1-0.6) K/mm3 Eos # (Auto) 0.1 (0-0.3) K/mm3 Baso # (Auto) 0.1 (0.0-0.1) K/mm3 Abs Immat Gran (auto) 0.02 (0.00-0.031) K/mm3 Absolute Neuts (auto) 2.8 (1.3-6.7) K/mm3 Absolute Nucleated RBC 0.000 (0.0-0.012) K/mm3 Nucleated RBC % 0.0 (0.0-0.2) % Sodium 145 (137-145) mmol/L Potassium 4.3 (3.4-5.0) mmol/L Chloride 102 (98-107) mmol/L Carbon Dioxide 30 (22-30) mmol/L Anion Gap 13 H (4-12) mmol/L BUN 9 (9-20) mg/dL Creatinine 0.60 L (0.7-1.3) mg/dL Estim Creat Clear Calc 131 ml/min Estimated GFR > 60 (59 - ) Glucose 90 (65-110) mg/dL Calcium 8.8 (8.4-10.2) mg/dL Total Bilirubin 0.5 (0.2-1.3) mg/dL AST 48 (17-59) U/L ALT 25 (6-50) U/L Alkaline Phosphatase 85 (38-126) U/L Total Protein 9.0 H (6.3-8.2) g/dL Albumin 4.9 (3.5-5.1) g/dL Urine Color Yellow (Yellow) Urine Appearance Cloudy H (Clear) Urine pH 5.0 (5.0-9.0) Ur Specific [place] 1.015 (1.001-1.035) Urine Protein 1+ H (Negative) mg/dL Urine Glucose (UA) Negative (Negative) mg/dL Urine Ketones Negative (Negative) mg/dL Ur Blood (Man) Negative (Negative) Urine Nitrate Negative (Negative) Urine Bilirubin Negative (Negative) Urine Urobilinogen 0.2 (<2.0) mg/dL Add Ur Microanalysis Reviewed Leukocyte Esterase Rfl Trace H (Negative) JUDITH/UL Urine RBC 0-2 (0-2) /hpf Urine WBC 11-20 H (0-3) /hpf Ur Squamous Epith Cells Occasional (Few) /hpf Urine Bacteria None seen /hpf Urine Casts 6-10 Hyaline Casts Present (None) /lpf Urine Mucus Present /lpf Urine Opiates Screen Negative (Negative) Urine Methadone Screen Negative (Negative) Ur Barbiturates Screen Negative (Negative) Ur Phencyclidine Scrn Negative (Negative) Ur Amphetamine Screen Negative (Negative) U Benzodiazepines Scrn Negative (Negative) Urine Cocaine Screen Negative (Negative) U Cannabinoids Screen Positive A (Negative) Ethyl Alcohol 506 H* (<10) mg/dL Discharge Plan Discharge Clinical Impression: Alcohol intoxication Patient Disposition: Home, Self-Care Condition: Stable Instructions: Antibiotic Form, Alcohol Intoxication (ED) Additional Instructions: please avoid drinking alcohol in excess. It is recommended that he seek out community resources for substance abuse if you wish to stop drinking Prescriptions: No Action sucralfate 100 mg/mL Suspension 1,000 mg PO ACHS Qty: 90 0RF pantoprazole [Protonix] 40 mg tablet,delayed release (DR/EC) 40 mg PO BID Qty: 60 0RF Follow-up/Referrals: [facility] [Outside] UNKNOWN,DOCTOR [Primary Care Provider] - Time of Disposition: 06:16
[2024-03-12 04:56] VITALS: BP 139/82; PULSE 109; RESP 17; TEMP 36.7; O2SAT 100
[2024-03-12 05:17] LABS: Add Urine Microscopic? YES; Appearance Urine Cloudy (Clear); Bacteria Urine None Seen /hpf; Bilirubin Urine Negative (Negative); Blood Urine Negative (Negative); Color Urine Yellow (Yellow); Glucose Urine UA Negative (Negative); Hyaline Casts Urine Present /lpf; Ketones Urine Negative (Negative); Leukocyte Esterase Ur Trace LEU/UL (Negative); Mucus Urine Present /lpf; Need Manual Microscopic Reviewed; Nitrate Urine Negative (Negative); Protein Urine 1+ mg/dL (Negative); RBC Urine 0-2 /hpf (0-2); Specific Grav Ur 1.015 (1.001-1.035); Squamous Epithelial Cell Urine Occasional /hpf (Few); Urobilinogen Urine 0.2 mg/dL (<2.0)
[2024-03-12 06:13] LABS: Amphetamine Screen Urine Negative (Negative); Barbiturate Screen Urine Negative (Negative); Benzodiazepines Screen Urine Negative (Negative); Cannabinoid Screen Urine Positive (Negative); Cocaine Screen Urine Negative (Negative); Methadone Screen Urine Negative (Negative); Opiate Screen Urine Negative (Negative); Phencyclidine Screen Urine Negative (Negative)
== END 2024-03-12 06:25 | disposition home or self-care (01) ==
PROVIDERS: Emergency Provider Emergency Medicine
DX: F10.129 Alcohol abuse with intoxication, unspecified (principal); F17.210 Nicotine dependence, cigarettes, uncomplicated; Y90.8 Blood alcohol level of 240 mg/100 ml or more
CPT/HCPCS: 36415; 80053; 80307; 81001; 82077; 85025; 87086; 99283

== ENCOUNTER 2024-05-31 17:47 | Emergency (ER) | payer SELFPAY ==
[2024-05-31 17:55] VITALS: BP 130/85; PULSE 81; RESP 16; TEMP 36.4; O2SAT 95
--- NOTE | 2024-05-31 18:00 | ED.AMS ---
HPI - Altered Mental Status General Chief Complaint: Altered Mental Status Stated Complaint: ETOH Time Seen by Provider: 05/31/24 17:50 Source: patient Mode of arrival: EMS Limitations: no limitations History of Present Illness HPI narrative: This is a 38-year-old male who presents to the ED via EMS for alcoholic intoxication in public. EMS reports that police called after they witnessed him stumbling on a bike path. EMS reports that he is intoxicated, disoriented and was found lying down on the bike path. They note that he has been emotional with a break-up but denies SI or HI. Patient has no current complaints. He states that he has been very emotional lately due to relationship issues, however he does not have any plans to stop drinking. States that he drank vodka today. States that he was supposed to go to work but did not make it today. Related Data Allergies Allergy/AdvReac Type Severity Reaction Status Date / Time No Known Allergies Allergy Mild Verified 07/26/23 13:01 Review of Systems Review of Systems: All systems as dictated in HPI [facility] Past Medical History Medical History Alcohol abuse GIB (gastrointestinal bleeding) Hematemesis Hypokalemia Ulcerative esophagitis Family History Family History Father Malignant neoplasm of prostate Social History Social History Smoking packs per day: 0.5 Smoking cigarettes per day: 10.0 Years smoked: 19 Smoking pack-years: 9.50 Smoking status: Current every day smoker Tobacco type: cigarettes Second hand tobacco smoke exposure: No Alcohol intake: current Drinks per week: 80 Substance use: current Substance use type: marijuana Other substance usage details: former use of cocaine, mushrooms, delisa Last use: 2 months ago Do You Feel Safe in your Home?: Yes Lack of Transportation: No Lack of Food: Never True Current Housing: I Have Housing Concerned About Future Housing: No Difficulty Paying Gas/Electric Bills: No Difficulty Paying for Meds: No Currently Unemployed: YES Education: Decline to Answer Difficulty w/ Childcare or Family Care: No Spiritual care concerns: No Exam Narrative: GENERAL: Mildly clinically intoxicated. He is sitting up in the bed and intermittently walks around the room looking for his belongings. HEAD: Normocephalic, atraumatic. EYES: PERRLA and EOMI. ENT: Nares clear, no rhinorrhea or epistaxis. Mucous membranes moist. Oropharynx without tonsillar hypertrophy exudate or other lesions. NECK: Supple. No adenopathy or masses. CHEST: No respiratory distress. Clear to auscultation. No wheezes rales or rhonchi HEART: Regular rate and rhythm. No murmur heard. Normal peripheral pulses. ABDOMEN: Soft, nontender, nondistended, normal active bowel sounds. MSK: Normal range of motion. No edema. SKIN: Warm, dry, no rash. NEURO: Alert and oriented x4. No focal deficits. PSYCH: Normal mood and affect. Course Vital Signs Vital signs: Vital Signs Temperature 97.6 F 05/31/24 17:55 Pulse Rate 81 05/31/24 17:55 Respiratory Rate 16 05/31/24 17:55 Blood Pressure 130/85 05/31/24 17:55 Pulse Oximetry 95 05/31/24 17:55 Temperature 97.6 F 05/31/24 17:55 Pulse Rate 81 05/31/24 17:55 Respiratory Rate 16 05/31/24 17:55 Blood Pressure 130/85 05/31/24 17:55 Pulse Oximetry 95 05/31/24 17:55 MDM - Altered Mental Status MDM Narrative Medical decision making narrative: This is a 38-year-old male who presents to the ED for intoxication in public. Vitals are normal. Exam remarkable for the above. Patient is mildly intoxicated but able to carry on full conversation and is walking around the room. He has no medical complaints or psychiatric complaints. While attempting to call patient's family or friends for a ride home, patient eloped from the ED. Discharge Plan Discharge Clinical Impression: Alcohol intoxication Patient Disposition: Elopement After Seen by Prov Condition: Stable Additional Instructions: Please refrain from abusing alcohol in the future. If you have any new or worsening symptoms please return to the ER for further evaluation. Patient Language: Arabic Prescriptions: No Action sucralfate 100 mg/mL Suspension 1,000 mg PO ACHS Qty: 90 0RF pantoprazole [Protonix] 40 mg tablet,delayed release (DR/EC) 40 mg PO BID Qty: 60 0RF Follow-up/Referrals: UNKNOWN,DOCTOR [Primary Care Provider] - Time of Disposition: 19:04
--- OUTSIDE RECORDS SUMMARY | 2024-05-31 18:07 | XMS_ITS | Clinical Summary ---
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 Gender Identity Not on file Sexual Orientation Not on file Plan of Treatment Health Maintenance Due Date Last Done Comments Hepatitis C Virus (HCV) Screening 1985 TdaP Immunization 1985 Hepatitis B Immunization (1 of 3 - 19+ 3-dose series) 2004 Influenza Immunization (#1) 2023 SARS-COV-2 Immunization (2023- season) 2023 Respiratory Syncytial Virus (RSV) Immunization (Adult) (1 - 1-dose 75+ series) 2060 Meningococcal Immunization (ACWY) Aged Out No longer eligible based on patient's age to complete this topic Pneumococcal Immunization Combined Aged Out No longer eligible based on patient's age to complete this topic Rotavirus Immunization Aged Out No lo nger eligible based on patient's age to complete this topic
--- NOTE | 2024-05-31 18:50 | PC.NURSE ---
Attempted to call pts mother, no answer, voicemail left.
--- NOTE | 2024-05-31 19:05 | PC.NURSE ---
Pt told EDP COURTNEY Kuhn that he contacted his girlfriend to come get him. COURTNEY Kuhn states pt is to wait in ED RM13 until she arrives.
== END 2024-05-31 19:36 | disposition left against medical advice (07) ==
PROVIDERS: Emergency Provider Physician Assistant
DX: F10.129 Alcohol abuse with intoxication, unspecified (principal); Y90.9 Presence of alcohol in blood, level not specified; K22.10 Ulcer of esophagus without bleeding; F17.210 Nicotine dependence, cigarettes, uncomplicated
CPT/HCPCS: 99281

== ENCOUNTER 2024-07-13 01:36 | Emergency (ER) | payer MEDICAID, SELFPAY ==
[2024-07-13] VITALS (28 sets, daily range): BP systolic 106–131; BP diastolic 64–84; PULSE 71–96; RESP 12–19; TEMP 36.8; O2SAT 93–98
--- NOTE | ~2024-07-13 | XR_ITS ---
Portable chest x-ray Comparison: 07/18/2023 Clinical History: Status post fall Findings: Possible minimal patchy haziness right upper lobe. Left lung clear. No pleural effusion or pneumothorax. Cardiomediastinal silhouette is stable. Bones and soft tissues are unremarkable. Impression: Possible mild patchy right upper lobe pneumonia. Reviewed, dictated and finalized at [facility]. Impression: Possible mild patchy right upper lobe pneumonia.
--- NOTE | ~2024-07-13 | CT_ITS ---
Non-contrast Head CT History: Status post fall COMPARISON: 06/30/2023 Technique: Axial non-contrast imaging of the brain was performed. Dose reduction technique was used on this scan by utilizing automated exposure control and iterative reconstruction technique. The dose -length product (DLP) was 756.67 mGy-cm. Findings: There is no evidence of intracranial hemorrhage, mass lesion, or acute infarct. Brain par enchyma appears normal. The ventricles and subarachnoid spaces are normal in size. The calvarium ap pears normal. The visualized paranasal sinuses and mastoid air cells are clear. Impression: No significant abnormality seen. Reviewed, dictated and finalized at location . Impression: No significant abnormality seen.
--- NOTE | 2024-07-13 01:40 | ECG_ITS ---
Test Date: 2024-07-13 01:46:47 Measurements Intervals [place] Rate: 82 P: 30 OK: 167 QRS: 5 QRSD: 105 T: -11 QT: 355 QTc: 415 Interpretive Statements SINUS RHYTHM INCOMPLETE RIGHT BUNDLE BRANCH BLOCK [90+ ms QRS DURATION, TERMINAL R IN V1/V2, 40+ ms S IN I/aVL/V4/V5/V6] NONSPECIFIC T-WAVE ABNORMALITY ABNORMAL ECG No previous ECG available for comparison Electronically Signed On 07-13-2024 06:52:03 CDT by Lamont Greer M.D.
[2024-07-13 02:01] LABS: Alanine Aminotransferase 180 U/L (6-50); Albumin Level 4.8 g/dL (3.5-5.1); Alkaline Phosphatase 118 U/L (38-126); Anion Gap 19 mmol/L (4-12); Aspartate Amino Transferase 158 U/L (17-59); Bilirubin,Total 0.2 mg/dL (0.2-1.3); Blood Urea Nitrogen 14 mg/dL (9-20); Calcium 9.3 mg/dL (8.4-10.2); Carbon Dioxide 27 mmol/L (22-30); Chloride 99 mmol/L (98-107); Estimated CRCL calculation 141 ml/min; Estimated Glomerular Filt Rate > 60; Glucose 98 mg/dL (65-110); Sodium 145 mmol/L (137-145)
[2024-07-13 02:05] LABS: Fractional Inspired Oxygen 21 %; HCO3 VBG 27.7 mEq/l (24.0-30.0); PCO2 VBG 45.9 mmHg (42.0-48.0); PO2 VBG 91.9 mmHg (35.0-45.0); pH VBG 7.399 (7.300-7.400)
--- OUTSIDE RECORDS SUMMARY | 2024-07-13 02:08 | XMS_ITS | Clinical Summary ---
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
[2024-07-13 02:10] LABS: Add Urine Microscopic? YES; Appearance Urine Clear (Clear); Bacteria Urine None Seen /hpf; Bilirubin Urine Negative (Negative); Blood Urine Negative (Negative); Color Urine Yellow (Yellow); Glucose Urine UA Negative (Negative); Ketones Urine Negative (Negative); Leukocyte Esterase Ur Negative LEU/UL (Negative); Nitrate Urine Negative (Negative); Non Pathogenic Casts 0-2; Protein Urine Trace mg/dL (Negative); RBC Urine 0-2 /hpf (0-2); Specific Grav Ur 1.021 (1.001-1.035); Squamous Epithelial Cell Urine None Seen /hpf (Few); Urobilinogen Urine 0.2 mg/dL (<2.0); WBC Urine 0-5 /hpf (0-3); pH Urine 5.5 (5.0-9.0)
[2024-07-13 02:14] LABS: Ethanol 394 mg/dL (<10)
[2024-07-13 02:24] LABS: Amphetamine Screen Urine Negative (Negative); Barbiturate Screen Urine Positive (Negative); Benzodiazepines Screen Urine Positive (Negative); Cannabinoid Screen Urine Positive (Negative); Cocaine Screen Urine Negative (Negative); Methadone Screen Urine Negative (Negative); Opiate Screen Urine Negative (Negative); Phencyclidine Screen Urine Negative (Negative)
[2024-07-13 02:24] LABS: Influenza A QL RT-PCR Negative (Negative); Influenza B QL RT-PCR Negative (Negative); RSV RNA, RT-PCR Negative (Negative); SARS-CoV-2 RNA PCR Negative (Negative)
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
[2024-07-13 02:43] LABS: Free T4 Free Thyroxine 0.92 ng/dL (0.78-2.19)
[2024-07-13 02:57] LABS: Thyroid Stimulating Hormone Reflex 0.252 uIU/mL (0.465-4.68)
[2024-07-13 03:01] LABS: Basophils Absolute Auto 0.1 K/mm3 (0.0-0.1); Basophils Percent Auto 1.8 % (0.2-1.2); Eosinophils Absolute Auto 0.2 K/mm3 (0-0.3); Eosinophils Percent Auto 4.1 % (0-4.4); Hematocrit 42.2 % (42.0-52.0); Hemoglobin 14.3 g/dL (14.0-18.0); Immature Granulocyte Absolute 0.03 K/mm3 (0.00-0.031); Immature Granulocyte Percent A 0.8 % (0-0.5); Immature Platelet Fraction Pct 4.3 % (0.9-11.2); Lymphocytes Absolute Auto 1.83 K/mm3 (0.9-3.2); Mean Corpuscular HGB Conc 33.9 g/dl (32-36); Mean Corpuscular Hemoglobin 33.3 pg (26-34); Mean Corpuscular Volume 98.4 fl (80-100); Mean Platelet Volume 9.7 fl (7.4-10.4); Monocytes Absolute Auto 0.4 K/mm3 (0.1-0.6); Neutrophils Absolute Auto 1.4 K/mm3 (1.3-6.7); Neutrophils Percent Auto 36.3 % (45.5-73.1); Nucleated Red Blood Cells Perc 0.5 % (0.0-0.2); Platelet Count Result 77 k/mm3 (150-375); Red Blood Count 4.29 M/mm3 (4.6-6.20); Red Cell Distribution Width 16.6 % (11.5-14.5); White Blood Count 3.9 K/mm3 (4.5-10.0)
[2024-07-13 03:17] LABS: Platelet Estimate Decreased (Adequate)
[2024-07-13 03:18] LABS: Schistocytes None Seen
[2024-07-13 03:37] LABS: Free T4 Free Thyroxine Reflex 0.89 ng/dL (0.78-2.19)
[2024-07-13 04:33] LABS: Total Triiodothyronine (T3) 1.18 NG/ML (0.97-1.69)
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
== END 2024-07-13 09:11 | disposition home or self-care (01) ==
PROVIDERS: Emergency Medicine; Emergency Provider Student in an Organized Health Care Education/Training Program
DX: T59.811A Toxic effect of smoke, accidental (unintentional), initial encounter (principal); F10.20 Alcohol dependence, uncomplicated; Y90.8 Blood alcohol level of 240 mg/100 ml or more; Z20.822 Contact with and (suspected) exposure to COVID-19; F17.210 Nicotine dependence, cigarettes, uncomplicated; I45.10 Unspecified right bundle-branch block; R94.31 Abnormal electrocardiogram [ECG] [EKG]
CPT/HCPCS: 36415; 70450; 71045; 80053; 80307; 81001; 82077; 82803; 84439; 84443; 84480; 85025; 85055; 87637; 93005; 99284